=== PATIENT | male | born 1950 | race Caucasian/White ===

== ENCOUNTER → 2018-10-19 | Outpatient (CLI) | payer OTHER ==
[~2018-10-19] MED LIST: ALBU6.7H IH; AMLO5TAB9 PO; ASPI-555 PO; CARV25TA PO; DICL2100G TP; DIPH1TAB24 PO; NITR0.4T50 SL; OMEG1CAP43 PO; POTA25TA13 PO; ROSU40 PO; TICA90TA PO
== END | disposition home or self-care (01) ==
LOC: SHCH 09:40
PROVIDERS: ATTEND Internal Medicine Cardiovascular Disease
DX: I65.23 Occlusion and stenosis of bilateral carotid arteries (principal); I25.10 Atherosclerotic heart disease of native coronary artery without angina pectoris
CPT/HCPCS: 93880

== ENCOUNTER → 2018-12-23 | Outpatient (CLI) | payer OTHER | END | disposition home or self-care (01) | LOC: SHCH 11:51 | PROVIDERS: ATTEND Internal Medicine Cardiovascular Disease | DX: I73.9 Peripheral vascular disease, unspecified (principal) | CPT/HCPCS: 93925 ==

== ENCOUNTER → 2019-02-15 | Outpatient (CLI) | payer OTHER ==
[~2019-02-15] MED LIST changes: -ALBU6.7H IH; +ALBU6.7H9 IH; +IOHEXOL-350 50ML VIAL IV ONE
== END | disposition home or self-care (01) ==
LOC: RAH 10:00
PROVIDERS: ATTEND Internal Medicine Cardiovascular Disease
DX: I70.202 Unspecified atherosclerosis of native arteries of extremities, left leg (principal); K57.90 Diverticulosis of intestine, part unspecified, without perforation or abscess without bleeding; K44.9 Diaphragmatic hernia without obstruction or gangrene; I70.0 Atherosclerosis of aorta; N40.0 Benign prostatic hyperplasia without lower urinary tract symptoms; N32.89 Other specified disorders of bladder
CPT/HCPCS: 75635; Q9967

== ENCOUNTER → 2020-02-03 | Outpatient (CLI) | payer OTHER ==
[~2020-02-03] MED LIST changes: -ASPI-555 PO; +ASPI-556 PO; -IOHEXOL-350 50ML VIAL IV ONE
[2020-02-03 13:34] LABS: CREATININE 1.2 mg/dL (0.5-1.5)
== END | disposition home or self-care (01) ==
LOC: LAB 12:09
PROVIDERS: ATTEND Internal Medicine Cardiovascular Disease
DX: I25.10 Atherosclerotic heart disease of native coronary artery without angina pectoris (principal)
CPT/HCPCS: 36415; 82565; 84520

== ENCOUNTER → 2020-02-06 | Outpatient (CLI) | payer OTHER ==
[~2020-02-06] MED LIST changes: +IOHEXOL-350 50ML VIAL IV ONE
== END | disposition home or self-care (01) ==
LOC: OIH 07:42
PROVIDERS: ATTEND Internal Medicine Cardiovascular Disease
DX: I70.202 Unspecified atherosclerosis of native arteries of extremities, left leg (principal); N28.1 Cyst of kidney, acquired; N20.0 Calculus of kidney; K40.90 Unilateral inguinal hernia, without obstruction or gangrene, not specified as recurrent; M47.819 Spondylosis without myelopathy or radiculopathy, site unspecified; I70.0 Atherosclerosis of aorta; I51.3 Intracardiac thrombosis, not elsewhere classified; C79.2 Secondary malignant neoplasm of skin; I25.10 Atherosclerotic heart disease of native coronary artery without angina pectoris
CPT/HCPCS: 75635; Q9967

== ENCOUNTER → 2021-07-23 | Outpatient (CLI) | payer OTHER ==
[~2021-07-23] VITALS: Ht 172.7 cm; Wt 93.4 kg
[~2021-07-23] MED LIST changes: +AMLO-257 PO; -AMLO5TAB9 PO; -IOHEXOL-350 50ML VIAL IV ONE; +REGADENOSON 0.4 MG/5 ML PF SYG IVP SCH
== END | disposition home or self-care (01) ==
LOC: SHCH 08:28
PROVIDERS: ATTEND Internal Medicine Cardiovascular Disease
DX: I10 Essential (primary) hypertension (principal); R07.89 Other chest pain
CPT/HCPCS: 78452; 93017; 96374; A9500 ×2; J2785

== ENCOUNTER → 2021-11-15 | Outpatient (CLI) | payer OTHER ==
[~2021-11-15] VITALS: Ht 172.7 cm; Wt 90.7 kg
== END | disposition home or self-care (01) ==
LOC: SHCH 08:14
PROVIDERS: ATTEND Internal Medicine Cardiovascular Disease
DX: R06.02 Shortness of breath (principal); R53.83 Other fatigue; I10 Essential (primary) hypertension; Z95.5 Presence of coronary angioplasty implant and graft
CPT/HCPCS: 78452; 93017; 96374; A9500 ×2; J2785

== ENCOUNTER → 2021-12-05 | Outpatient (CLI) | payer OTHER ==
[~2021-12-05] MED LIST changes: -REGADENOSON 0.4 MG/5 ML PF SYG IVP SCH
== END | disposition home or self-care (01) ==
LOC: SHCH 08:13
PROVIDERS: ATTEND Internal Medicine Cardiovascular Disease
DX: I35.8 Other nonrheumatic aortic valve disorders (principal); I11.9 Hypertensive heart disease without heart failure; I25.10 Atherosclerotic heart disease of native coronary artery without angina pectoris; I25.2 Old myocardial infarction; E66.9 Obesity, unspecified; Z98.61 Coronary angioplasty status; Z98.62 Peripheral vascular angioplasty status
CPT/HCPCS: 93306

== ENCOUNTER 2021-12-27 06:45 | Day surgery (SDC) | payer OTHER ==
[2021-12-24 13:21] LABS: BASOPHILS % (AUTO) 0.7 % (0.0-5.0); EOSINOPHILS % (AUTO) 2.6 % (0.0-8.0); HEMATOCRIT 43.7 % (42-54); LYMPHOCYTES % (AUTO) 23.2 % (21.0-51.0); MEAN CORPUSCULAR HEMOGLOBIN 32.5 pg (27.0-33.0); MEAN CORPUSCULAR HGB CONC 34.1 g/dL (32.0-36.0); MEAN CORPUSCULAR VOLUME 95.4 fL (79-99); MONOCYTES % (AUTO) 11.1 % (3.0-13.0); NEUTROPHILS % (AUTO) 62.2 % (40.0-77.0); PLATELET COUNT (AUTO) 146 K/uL (130-400); RED BLOOD CELL COUNT(AUTO) 4.58 MIL/uL (4.50-6.20); RED CELL DISTRIBUTION WIDTH 13.9 % (11.0-15.5); WHITE BLOOD COUNT (AUTO) 6.1 K/uL (4.8-10.8)
[2021-12-24 13:34] LABS: CREATININE 1.1 mg/dL (0.5-1.5); POTASSIUM 3.9 mmol/L (3.5-5.1)
[2021-12-24 13:39] LABS: INR 0.99 (0.85-1.15); PROTHROMBIN TIME 10.8 SEC (9.6-11.6)
[2021-12-24 13:40] LABS: PARTIAL THROMBOPLASTIN TIME 28.5 SEC (26.3-35.5)
[2021-12-24 13:43] LABS: APPEARANCE,URINE CLEAR (CLEAR); BILIRUBIN,URINE SMALL (NEGATIVE); COLOR,URINE YELLOW (YELLOW); GLUCOSE, URINE (UA) NEGATIVE (NEGATIVE); KETONES,URINE NEGATIVE (NEGATIVE); LEUKOCYTE ESTERASE ,URINE NEGATIVE (NEGATIVE); NITRATE,URINE NEGATIVE (NEGATIVE); OCCULT BLOOD,URINE NEGATIVE (NEGATIVE); PH,URINE 5.5 (5.0-8.0); PROTEIN,URINE NEGATIVE (NEGATIVE); UROBILINOGEN,URINE 0.2 mg/dL (0.2-1.0)
[2021-12-24 14:03] LABS: BACTERIA,URINE Rare /HPF (None Seen); RBC,URINE None Seen /HPF (0-1); SQUAMOUS EPITHELIAL CELL,UR 0-2 /HPF (0-2); WBC,URINE None Seen /HPF (0-1)
[2021-12-24 14:05] LABS: B-TYPE NATRIURETIC PEPTIDE 9 pg/mL (0-100)
[2021-12-26 12:39] VITALS: BP 154/79
[2021-12-27] VITALS (10 sets, daily range): BP systolic 103–130; BP diastolic 54–69
[~2021-12-27] VITALS: Ht 172.7 cm; Wt 93.9 kg
[~2021-12-27 06:45] MED LIST changes: -ALBU6.7H9 IH; -AMLO-257 PO; +AMLO-258 PO; +ATOR40TA69 PO; +CARV12.511 PO; -CARV25TA PO; -DICL2100G TP; -DIPH1TAB24 PO; +FISH1CAP27 PO; +ISOS30TA11 PO; -NITR0.4T50 SL; -OMEG1CAP43 PO; +OMEP20TA20 PO; -POTA25TA13 PO; +PREG50CA63 PO; +RANO10003 PO; -ROSU40 PO
[2021-12-27] MEDS ORDERED: 0.9%NACL 1000ML 1,000 ML IV ONE (07:47)
[2021-12-27] MEDS ORDERED: SODIUM BICARB 50MEQ 50ML VIAL 50 ML ONE (09:20)
[2021-12-27] MEDS ORDERED: IOHEXOL-350 50ML VIAL IV ONE (09:20)
[2021-12-27] MEDS ORDERED: LIDOCAINE HCL 400MG/20ML VIAL ONE (09:20)
[2021-12-27] MEDS ORDERED: NITROGLYCERIN 50MG VIAL ONE (09:20)
[2021-12-27] MEDS ORDERED: HEPARIN 10,000 UNIT/10ML (1,000 UNIT/ML) VIAL ONE (09:21)
[2021-12-27] MEDS ORDERED: MEPERIDINE-PF 25 MG/ML SYG ONE ×3 (09:21→10:19)
[2021-12-27] MEDS ORDERED: MIDAZOLAM HCL 1 MG/ML 2ML VIAL ONE ×3 (09:21→10:19)
[2021-12-27] MEDS ORDERED: IOHEXOL 350 MG/ML 100ML INFUS..BTL IV ONE ×2 (09:22→09:56)
[2021-12-27] MEDS ORDERED: 0.9%NACL 1000ML 1,000 ML IV SCH (11:00)
== END 2021-12-27 17:00 | disposition home or self-care (01) ==
LOC: DAH 06:45
PROVIDERS: ATTEND Internal Medicine Cardiovascular Disease
DX: I25.119 Atherosclerotic heart disease of native coronary artery with unspecified angina pectoris (principal); I25.82 Chronic total occlusion of coronary artery; T82.855A Stenosis of coronary artery stent, initial encounter; G47.33 Obstructive sleep apnea (adult) (pediatric); I25.2 Old myocardial infarction; E66.9 Obesity, unspecified; Z79.01 Long term (current) use of anticoagulants; Z98.890 Other specified postprocedural states; Z79.82 Long term (current) use of aspirin; Z79.899 Other long term (current) drug therapy; Z95.5 Presence of coronary angioplasty implant and graft; Z68.31 Body mass index [BMI] 31.0-31.9, adult; Y83.8 Other surgical procedures as the cause of abnormal reaction of the patient, or of later complication, without mention of misadventure at the time of the procedure
CPT/HCPCS: 80048; 83880; 85025; 85610; 85730; 81001; 36415 ×2; 71045; 93005; 93458; 92920; 85347 ×2; C9600; C1769; C1887 ×2; C1894; C1760; C1874; C1725; J3490 ×2; J7030 ×2; J1644 ×2; J2250 ×3; J2175 ×3; Q9967 ×2; A4215; A4222; A4221; A4663; A4216; A4606; Q9965 ×2; A4223 ×3; 96360; 96361; 99156; 99157

== ENCOUNTER → 2022-07-04 | Outpatient (CLI) | payer OTHER ==
[~2022-07-04] MED LIST changes: +REGADENOSON 0.4 MG/5 ML PF SYG IVP SCH
== END | disposition home or self-care (01) ==
LOC: SHCH 08:12
PROVIDERS: ATTEND Internal Medicine Cardiovascular Disease
DX: R07.9 Chest pain, unspecified (principal)
CPT/HCPCS: 78452; 96374; 93017; J2785; A9500 ×2

== ENCOUNTER 2023-01-02 11:13 | Observation (INO) | payer OTHER ==
[~2023-01-02] VITALS: Ht 172.7 cm; Wt 93.9 kg
[~2023-01-02 11:13] MED LIST changes: -REGADENOSON 0.4 MG/5 ML PF SYG IVP SCH
[2023-01-02 12:10] LABS: BASOPHILS # (AUTO) 0.03 K/uL (0.00-0.20); BASOPHILS % (AUTO) 0.5 % (0.0-5.0); EOSINOPHILS # (AUTO) 0.13 K/uL (0.00-0.70); EOSINOPHILS % (AUTO) 2.1 % (0.0-8.0); IMMATURE GRANULOCYTE ABSOLUTE 0.02 K/uL (0-1); LYMPHOCYTES # (AUTO) 1.2 K/uL (1.0-4.8); LYMPHOCYTES % (AUTO) 19.3 % (21.0-51.0); MEAN CORPUSCULAR HEMOGLOBIN 32.4 pg (27.0-33.0); MEAN CORPUSCULAR HGB CONC 34.8 g/dL (32.0-36.0); MEAN CORPUSCULAR VOLUME 93.1 fL (79-99); MONOCYTES # (AUTO) 0.6 K/uL (0.1-1.0); MONOCYTES % (AUTO) 10.6 % (3.0-13.0); NEUTROPHILS # (AUTO) 4.1 K/uL (1.8-7.7); NEUTROPHILS % (AUTO) 67.2 % (40.0-77.0); PLATELET COUNT (AUTO) 128 K/uL (130-400); RED BLOOD CELL COUNT(AUTO) 4.51 MIL/uL (4.50-6.20); RED CELL DISTRIBUTION WIDTH 13.2 % (11.0-15.5); WHITE BLOOD COUNT (AUTO) 6.1 K/uL (4.8-10.8)
[2023-01-02 12:12] LABS: APPEARANCE,URINE CLEAR (CLEAR); BILIRUBIN,URINE NEGATIVE (NEGATIVE); COLOR,URINE YELLOW (YELLOW); GLUCOSE, URINE (UA) NEGATIVE (NEGATIVE); KETONES,URINE NEGATIVE (NEGATIVE); LEUKOCYTE ESTERASE ,URINE NEGATIVE Leu/uL (NEGATIVE); NITRATE,URINE NEGATIVE (NEGATIVE); OCCULT BLOOD,URINE NEGATIVE (NEGATIVE); PH,URINE 6.5 (5.0-8.0); PROTEIN,URINE 10 mg/dL (NEGATIVE); UROBILINOGEN,URINE 0.2 mg/dL (0.2-1.0)
[2023-01-02 12:19] LABS: ADD UA MICROSCOPIC YES
[2023-01-02 12:21] LABS: CREATININE 1.2 mg/dL (0.5-1.5); POTASSIUM 3.9 mmol/L (3.5-5.1)
[2023-01-02 12:22] LABS: INR 0.98 (0.85-1.15); PROTHROMBIN TIME 11.4 SEC (9.6-11.6)
[2023-01-02 12:26] LABS: ALBUMIN 3.4 g/dL (3.5-5.0); BILIRUBIN,TOTAL 1.1 mg/dL (0.2-1.0); TOTAL PROTEIN, SERUM 6.9 g/dL (6.0-8.3)
[2023-01-02 12:39] LABS: B-TYPE NATRIURETIC PEPTIDE 18 pg/mL (0-100)
[2023-01-02 12:47] LABS: MUCUS,URINE RARE LPF (None Seen); RBC,URINE 0-1 /HPF (0-1); WBC,URINE 0-1 /HPF (0-1)
[2023-01-02] MEDS ORDERED: 0.9% NACL 500ML IV.SOLN 500 ML IV ONE (13:30)
[2023-01-02] MEDS ORDERED: ENOXAPARIN SODIUM 100 MG/1 ML SQ ONE (17:00)
[2023-01-02] MEDS ORDERED: RANOLAZINE 500 MG TAB.SR.12H ONE (19:31)
[2023-01-02] MEDS: RANOLAZINE 500 MG TAB.SR.12H PO SCH (19:32)
[2023-01-02] MEDS: ATORVASTATIN 40 MG TABLET PO SCH (19:32)
[2023-01-02] MEDS ORDERED: NON-FORMULARY MEDICATION 1 EACH (Ranolazine (Ranexa) 1,000 MG) PO SCH (21:00)
[2023-01-02] MEDS ORDERED: ONDANSETRON 4MG INJ IV PRN (21:30)
[2023-01-02] MEDS ORDERED: MORPHINE 2 MG SYG IV PRN (21:30)
[2023-01-02] MEDS ORDERED: ACETAMINOPHEN 325 MG TAB PO PRN ×2 (21:30)
[2023-01-02] MEDS ORDERED: POTASSIUM CHLORIDE 20MEQ/100ML 100 ML IV PRN (21:30)
[2023-01-02] MEDS ORDERED: MORPHINE 4 MG SYG IV PRN (21:30)
[2023-01-02] MEDS ORDERED: KCL 20 MEQ ERTAB PO PRN (21:30)
[2023-01-02] MEDS ORDERED: MAGNESIUM 2GM PREMIX 50ML 50 ML IV PRN (21:30)
[2023-01-02] MEDS ORDERED: POTASSIUM CHLORIDE 10% ELIXIR 20 MEQ/15 ML UDCUP PO PRN (21:30)
[2023-01-02 23:00] VITALS: BP 168/74; PULSE 61; RESP 20
[2023-01-03] VITALS (10 sets, daily range): BP systolic 111–144; BP diastolic 49–77; PULSE 56–65; RESP 18–21; O2SAT 94–98
[2023-01-03 04:06] LABS: CREATININE 1.4 mg/dL (0.5-1.5); PHOSPHORUS 1.7 mg/dL (2.5-4.9); POTASSIUM 3.7 mmol/L (3.5-5.1)
[2023-01-03 04:08] LABS: BASOPHILS # (AUTO) 0.03 K/uL (0.00-0.20); BASOPHILS % (AUTO) 0.6 % (0.0-5.0); EOSINOPHILS # (AUTO) 0.15 K/uL (0.00-0.70); EOSINOPHILS % (AUTO) 2.9 % (0.0-8.0); HEMATOCRIT 39.6 % (42-54); LYMPHOCYTES # (AUTO) 1.3 K/uL (1.0-4.8); LYMPHOCYTES % (AUTO) 23.9 % (21.0-51.0); MEAN CORPUSCULAR HEMOGLOBIN 33.2 pg (27.0-33.0); MEAN CORPUSCULAR HGB CONC 35.4 g/dL (32.0-36.0); MEAN CORPUSCULAR VOLUME 93.8 fL (79-99); MONOCYTES # (AUTO) 0.6 K/uL (0.1-1.0); MONOCYTES % (AUTO) 10.9 % (3.0-13.0); NEUTROPHILS # (AUTO) 3.1 K/uL (1.8-7.7); NEUTROPHILS % (AUTO) 59.8 % (40.0-77.0); PLATELET COUNT (AUTO) 130 K/uL (130-400); RED BLOOD CELL COUNT(AUTO) 4.22 MIL/uL (4.50-6.20); RED CELL DISTRIBUTION WIDTH 13.6 % (11.0-15.5); WHITE BLOOD COUNT (AUTO) 5.2 K/uL (4.8-10.8)
[2023-01-03] MEDS: RIVAROXABAN 2.5 MG TABLET PO SCH ×2 (08:12→20:02)
[2023-01-03] MEDS: RANOLAZINE 500 MG TAB.SR.12H PO SCH ×2 (08:12→20:01)
[2023-01-03] MEDS ORDERED: ISOSORBIDE MONO 60MG SR TAB PO SCH (09:00)
[2023-01-03] MEDS ORDERED: ASPIRIN 81 MG EC TAB PO SCH (09:00)
[2023-01-03] MEDS ORDERED: AMLODIPINE 5 MG TAB PO SCH (09:00)
[2023-01-03] MEDS ORDERED: NON-FORMULARY MEDICATION 1 EACH (Amlodipine Besylate 10 MG) PO SCH (09:00)
[2023-01-03] MEDS ORDERED: FAMOTIDINE 20MG TAB PO SCH (09:00)
[2023-01-03] MEDS: ATORVASTATIN 40 MG TABLET PO SCH (20:01)
[2023-01-05 00:35] LABS: PHOSPHORUS 1.9 mg/dL (2.5-4.9); POTASSIUM 3.5 mmol/L (3.5-5.1)
[2023-01-05 19:31] LABS: MEAN CORPUSCULAR VOLUME 94.8 fL (79-99); RED BLOOD CELL COUNT(AUTO) 4.22 MIL/uL (4.50-6.20); WHITE BLOOD COUNT (AUTO) 5.9 K/uL (4.8-10.8)
[2023-01-05 19:32] LABS: BASOPHILS # (AUTO) 0.02 K/uL (0.00-0.20); BASOPHILS % (AUTO) 0.3 % (0.0-5.0); EOSINOPHILS # (AUTO) 0.18 K/uL (0.00-0.70); IMMATURE GRANULOCYTE ABSOLUTE 0.02 K/uL (0-1); LYMPHOCYTES # (AUTO) 1.2 K/uL (1.0-4.8); LYMPHOCYTES % (AUTO) 20.1 % (21.0-51.0); MEAN CORPUSCULAR HEMOGLOBIN 32.7 pg (27.0-33.0); MEAN CORPUSCULAR HGB CONC 34.5 g/dL (32.0-36.0); MONOCYTES # (AUTO) 0.6 K/uL (0.1-1.0); MONOCYTES % (AUTO) 10.2 % (3.0-13.0); NEUTROPHILS # (AUTO) 3.9 K/uL (1.8-7.7); NEUTROPHILS % (AUTO) 66.1 % (40.0-77.0); PLATELET COUNT (AUTO) 120 K/uL (130-400); RED CELL DISTRIBUTION WIDTH 13.6 % (11.0-15.5)
== END 2023-01-04 14:15 | disposition home or self-care (01) ==
LOC: EDH 11:13 → INTOOBSV 20:21 → EDHIP 20:21 → 2AH 23:39
PROVIDERS: ADMIT Internal Medicine; ATTEND Internal Medicine
DX: R07.9 Chest pain, unspecified (principal); I10 Essential (primary) hypertension; I25.10 Atherosclerotic heart disease of native coronary artery without angina pectoris; I73.9 Peripheral vascular disease, unspecified; H53.8 Other visual disturbances; G47.33 Obstructive sleep apnea (adult) (pediatric); M54.17 Radiculopathy, lumbosacral region; Z79.01 Long term (current) use of anticoagulants; Z51.5 Encounter for palliative care; Z79.02 Long term (current) use of antithrombotics/antiplatelets; Z79.82 Long term (current) use of aspirin; Z79.899 Other long term (current) drug therapy; Z95.5 Presence of coronary angioplasty implant and graft
CPT/HCPCS: 96372; 96361; 99285; 84484 ×5; 80053; 83880; 85025 ×3; 85610; 81001; 36415 ×3; 71045; 93005 ×4; 96365; 96366; 83735 ×2; 84100 ×2; 80048 ×2; 70450; G0378 ×42; J1650; J3475

== ENCOUNTER → 2023-02-12 | Outpatient (CLI) | payer OTHER ==
[~2023-02-12] MED LIST changes: +IOHEXOL 350 MG/ML 100ML INFUS..BTL IV ONE; -PREG50CA63 PO; +PREG50CA64 PO
== END | disposition home or self-care (01) ==
LOC: RAH 07:41
PROVIDERS: ATTEND Internal Medicine Cardiovascular Disease
DX: R07.9 Chest pain, unspecified (principal)
CPT/HCPCS: 75574; Q9967

== ENCOUNTER → 2023-08-21 | Outpatient (CLI) | payer OTHER ==
[~2023-08-21] MED LIST changes: -IOHEXOL 350 MG/ML 100ML INFUS..BTL IV ONE
== END | disposition home or self-care (01) ==
LOC: SHCH 08:18
PROVIDERS: ATTEND Internal Medicine Cardiovascular Disease
DX: I11.9 Hypertensive heart disease without heart failure (principal); I25.10 Atherosclerotic heart disease of native coronary artery without angina pectoris
CPT/HCPCS: 93306

== ENCOUNTER → 2023-09-14 | Outpatient (CLI) | payer OTHER ==
[~2023-09-14] MED LIST changes: +IOHEXOL 350 MG/ML 100ML INFUS..BTL IV ONE; +IOHEXOL-350 50ML VIAL IV ONE
== END | disposition home or self-care (01) ==
LOC: RAH 08:27
PROVIDERS: ATTEND Internal Medicine Cardiovascular Disease
DX: I70.203 Unspecified atherosclerosis of native arteries of extremities, bilateral legs (principal); I71.40 Abdominal aortic aneurysm, without rupture, unspecified; M47.815 Spondylosis without myelopathy or radiculopathy, thoracolumbar region; N28.1 Cyst of kidney, acquired; N40.0 Benign prostatic hyperplasia without lower urinary tract symptoms
CPT/HCPCS: 75635; Q9967 ×2

== ENCOUNTER → 2024-05-12 | Outpatient (CLI) | payer OTHER ==
[~2024-05-12] MED LIST changes: -IOHEXOL 350 MG/ML 100ML INFUS..BTL IV ONE; -IOHEXOL-350 50ML VIAL IV ONE
== END | disposition home or self-care (01) ==
LOC: SHCH 15:02
PROVIDERS: ATTEND Internal Medicine Cardiovascular Disease
DX: R09.89 Other specified symptoms and signs involving the circulatory and respiratory systems (principal)
CPT/HCPCS: 93880

== ENCOUNTER → 2024-10-13 | Outpatient (CLI) | payer OTHER ==
[2024-10-13] MEDS: REGADENOSON 0.4 MG/5 ML PF SYG IVP ONE (15:43)
== END | disposition home or self-care (01) ==
LOC: SHCH 08:46
PROVIDERS: ATTEND Internal Medicine Cardiovascular Disease
DX: I11.0 Hypertensive heart disease with heart failure (principal); I50.32 Chronic diastolic (congestive) heart failure; R06.00 Dyspnea, unspecified
CPT/HCPCS: 78452; 93017; J2785; A9500 ×2

== ENCOUNTER 2024-12-23 07:00 | Day surgery (SDC) | payer OTHER ==
[2024-12-21 11:06] VITALS: BP 155/74; PULSE 63; RESP 18; TEMP 97.7
[2024-12-21 11:10] LABS: APPEARANCE,URINE CLEAR (CLEAR); GLUCOSE, URINE (UA) NEGATIVE (NEGATIVE); LEUKOCYTE ESTERASE ,URINE NEGATIVE Leu/uL (NEGATIVE); NITRATE,URINE NEGATIVE (NEGATIVE); OCCULT BLOOD,URINE NEGATIVE (NEGATIVE)
[2024-12-21 11:11] LABS: CREATININE 1.2 mg/dL (0.5-1.3); GLOMERULAR FILTR. RATE CALC 63.0 mL/min (>90); GLUCOSE,RANDOM 96.0 mg/dL (70-105); SODIUM SERUM 142.0 mmol/L (136-145); UREA NITROGEN, BLOOD 15.0 mg/dL (7-18)
[2024-12-21 11:13] LABS: IMMATURE GRANULOCYTE ABSOLUTE 0.04 K/uL (0-1); NUCLEATED RED BLOOD CELLS 0.0 % (0.0-0.19); PLATELET COUNT (AUTO) 170 K/uL (130-400); RED BLOOD CELL COUNT(AUTO) 4.99 MIL/uL (4.50-6.20); RED CELL DISTRIBUTION WIDTH 13.5 % (11.0-15.5); WHITE BLOOD COUNT (AUTO) 9.0 K/uL (4.8-10.8)
--- NOTE | 2024-12-21 11:21 | EKG ---
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
[2024-12-21 11:26] LABS: ADD UA MICROSCOPIC YES
--- NOTE | 2024-12-21 11:54 | HMCIMG ---
EXAM: CR Chest, 1 View. CLINICAL HISTORY: PRE OP COMPARISON: None provided. FINDINGS: LUNGS: There is no mass, infiltrate, or acute pulmonary abnormality. PLEURAL SPACES: No evidence of pleural effusion or pneumothorax. MEDIASTINUM: The cardiomediastinal silhouette is within normal limits. Atherosclerosis of the coronary arteries. BONES: No acute osseous abnormality. IMPRESSION: No acute cardiopulmonary pathology is evident. /[place]
[2024-12-21 12:09] LABS: INR 1.09 (0.85-1.15)
[~2024-12-23] VITALS: Ht 172.7 cm; Wt 87.4 kg
[2024-12-23] VITALS (11 sets, daily range): BP systolic 113–151; BP diastolic 61–83; PULSE 56–63; RESP 14–24; TEMP 97.2–97.7
[~2024-12-23 07:00] MED LIST changes: -CARV12.511 PO; +CARV6.25 PO; +EZET10TA48 PO; -ISOS30TA11 PO; +ISOS30TA92 PO; +MEMA10TA21 PO; +MULT-1335 PO; -OMEP20TA20 PO; +PANT40TA54 PO; -PREG50CA64 PO
[2024-12-23] MEDS ORDERED: LIDOCAINE HCL 400MG/20ML VIAL ONE (09:32)
[2024-12-23] MEDS ORDERED: IOHEXOL 350 MG/ML 100ML INFUS..BTL IV ONE (09:32)
[2024-12-23] MEDS ORDERED: SODIUM BICARB 50MEQ 50ML VIAL 50 ML ONE (09:32)
[2024-12-23] MEDS ORDERED: NITROGLYCERIN 50MG VIAL ONE (09:33)
[2024-12-23] MEDS ORDERED: HEParin-NS 1,000 UNIT/500 ML 1,000 ML IV ONE (09:33)
[2024-12-23] MEDS ORDERED: MIDAZOLAM HCL 1 MG/ML 2ML VIAL ONE ×4 (09:56→11:10)
[2024-12-23] MEDS ORDERED: HEParin-NS 1,000 UNIT/500 ML 500 ML IV ONE (11:40)
[2024-12-23] MEDS ORDERED: 0.9%NACL 1000ML 1,000 ML IV SCH (12:30)
--- NOTE | 2024-12-23 14:28 | PR ---
PROCEDURES: * Left heart catheterization. * Selective right and left coronary arteriogram. * IVUS of the RCA. * IVUS of the circumflex. * IVUS of the LAD. * Drug-coated balloon angioplasty of the circumflex. * Drug-coated balloon angioplasty of the LAD. * Balloon angioplasty and stent placement in the ostial to proximal RCA. * Balloon angioplasty and stent placement in the ostial to proximal circumflex. * Conscious sedation for 90 minutes. INDICATIONS: * History of extensive coronary artery disease. * Status post multiple coronary stent procedures in multiple institutions. * Recurrent angina at low levels of activity. * Abnormal Lexiscan Cardiolite. COMPLICATIONS: None. TOTAL CONTRAST: Approximately 170 mL. APPROACH: Right radial approach. DESCRIPTION OF PROCEDURE: The patient was seen in the cardiac catheterization lab after appropriate operative consents were signed. He was prepped and draped in the usual fashion. After conscious sedation was administered, the right radial artery region was infiltrated with 2% Xylocaine without epinephrine. At this point, the radial sheath was advanced in a retrograde fashion with a modified Seldinger technique. The radial cocktail was administered. A TIG-4 catheter was advanced and crossed into the left ventricular cavity. Left ventricular end-diastolic pressure measurement was obtained. Ventriculography was deferred to conserve contrast. The patient has preserved LV systolic function by noninvasive studies. Pullback revealed no aortic stenosis. The catheter was then engaged in the ostium of the right coronary artery. Catheter dampening ensued immediately. Imaging of the right coronary artery identified a hazy 70-80% in-stent restenosis of the proximal right coronary artery stent. The patient had a stent in the distal right coronary artery jailing the PDA and traversing its ostium and placed distally into the proximal part of the posterior left ventricular branch. The posterior left ventricular branch was a large vessel that was bifurcating and was noted to have a patent chronic stent in the inferior and proximal limb of the bifurcating vessel. The PDA had a stent that was 100% occluded proximal to the stent and 100% occluded distal to the stent. The catheter was withdrawn and engaged in the left main. Imaging was obtained in multiplane. The left main was a normal vessel with no significant stenotic lesions that trifurcated in the LAD, tiny intermediate, and a circumflex. The LAD was a moderately-sized vessel that gave rise to several diagonals of septal perforators. The LAD had a stent in its proximal portion that appeared to have a 70% in-stent restenosis. The first diagonal had a 40% lesion. An intermediate was a tiny vessel that was 100% occluded and was seen to fill via collaterals in a retrograde fashion; however, it was not a sizable vessel. Circumflex was a moderately-sized vessel that gave rise to a tiny OM1 and an ongoing circ with a moderately-sized OM2. The circ had a proximal 80% lesion and there was evidence of a stent in the proximal circumflex extending into the obtuse marginal branch. There was clear evidence of in-stent restenosis. At this point, the catheter was withdrawn and an FR4 6-Hungarian guide was selected and engaged with the ostium of the right coronary artery. Once again, catheter dampening ensued. A 0.014 wire was advanced and positioned to the distal RCA circulation. IVUS measurements were then obtained in the right coronary artery. We obtained a minimal diameter of 2.9 in the area of proximal RCA. The calculated stenotic segment was 73% by IVUS as well. At this point, utilizing IVUS guidance, the right coronary artery was treated with an Eliseo 4.5 x 30 stent, which was inflated to 12 atmospheres and postdilated with an NC balloon at 4.5 x 20 to 20 atmospheres, which still yielded suboptimal results. We then utilized a 5 x 15 NC balloon, which was inflated to 16 atmospheres at 5.5 mm in size with good angiographic results. At this point, the catheter was withdrawn and XB3 was advanced and selectively engaged in the ostium of the left main. A 0.014 was advanced to the distal circumflex. We then proceeded with IVUS measurements of the circumflex, which revealed an 80% in-stent restenosis with an under-dilated stent. The minimal diameter of the circumflex was 2.1 with a percentage calculated stenosis of 88% by IVUS. At this point, we proceeded with placement of a drug-coated AGENT balloon, which is Paclitaxel stent, which was inflated to a nominal pressure for 1 minute. The procedure was then followed by placement of an NC Euphora to 20 atmospheres at 3.13; however, it was still suboptimal results, so we proceeded with an Stebbins 3.0 x 12, which was inflated to 12 atmospheres of the ostial to proximal circ and postdilated with an NC balloon 3 x 20 with good final angiographic results. At this point, the wire was redirected and placed into the LAD. IVUS measurement was performed in the LAD. The minimal diameter in the proximal in-stent segment was 2.4 with a calculated percentage stenosis of 77% by IVUS measurement. At this point, the decision was made to proceed with balloon angioplasty of the LAD. We utilized a 4 x 20 AGENT Paclitaxel drug-eluting balloon to 6 atmospheres. This followed by placement of a 4.0 x 15 NC balloon to 14 atmospheres at 4.07 mm in size with good final angiographic results. At this point, the procedure was completed, the catheter was withdrawn over an indwelling wire. 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 FINAL IMPRESSION: * Severe [place] 3-vessel coronary artery disease. * Recurrent angina. * Abnormal Cardiolite. * Status post multivessel stenting. * Evidence of in-stent restenosis in the RCA, LAD, and proximal circumflex. * Successful IVUS-guided balloon angioplasty and stenting of the RCA with a 4.5 x 30 Stebbins [place] stent postdilated with a 5 x 15 balloon at 16 atmospheres to 5.15 mm size. * Successful balloon angioplasty with a drug-coated balloon of the circumflex with 3 x 20 to 6 atmospheres followed by NC 4 x 20 atmospheres at 3.13 size followed by placement of a 3.0 x 12 Stebbins [place] to 12 atmospheres in the ostium to proximal circ postdilated with an NC balloon at 3 x 20 mm. At this point, the wire was redirected and positioned to the LAD. An AGENT Paclitaxel drug-coated balloon was then utilized and placed in the proximal portion of the LAD in the previously deployed stent and inflated to 6 atmospheres for 1 minute. This was followed by placement of an NC 4.0 x 15 balloon, which was inflated to 14 atmospheres at 4.07 mm size with good final angiographic results. At this point, the procedure was completed, the catheter was withdrawn over an indwelling wire. The patient tolerated it well and left the cardiac dental lab technician in stable condition. FINAL IMPRESSION: * Severe [place] 3-vessel coronary artery disease. * Patent proximal LAD, proximal circ and OM stents with patent proximal RCA, distal RCA and PLVB stents with evidence of occluded PDA with occluded PDA stent and severe in-stent restenosis of the RCA, circumflex and LAD stents. * Successful IVUS-guided balloon angioplasty and stent placement of the proximal RCA. * Successful IVUS-guided balloon angioplasty and drug-coated balloons and stent placement of the ostium to proximal circ. * Successful IVUS-guided balloon angioplasty with a drug-coated balloon and noncompliant balloon in the in-stent restenosis of the LAD with good angiographic results. PLAN: Continue medical management. TID: [id number] [facility]: [id number]
--- NOTE | 2024-12-23 17:30 | NUR ---
d/c pt and spouse given d/c instructions. understanding voiced. pt in no distress and rt radial free from bleeding or hematoma. pt taken out via w/c
== END 2024-12-23 17:30 | disposition home or self-care (01) ==
LOC: DAH 07:00
PROVIDERS: ATTEND Internal Medicine Cardiovascular Disease
DX: I25.118 Atherosclerotic heart disease of native coronary artery with other forms of angina pectoris (principal); T82.855A Stenosis of coronary artery stent, initial encounter; I25.2 Old myocardial infarction; R94.39 Abnormal result of other cardiovascular function study; E66.9 Obesity, unspecified; G47.33 Obstructive sleep apnea (adult) (pediatric); Z95.5 Presence of coronary angioplasty implant and graft; Z79.82 Long term (current) use of aspirin; Z79.899 Other long term (current) drug therapy; Z99.89 Dependence on other enabling machines and devices; Z68.30 Body mass index [BMI] 30.0-30.9, adult; Y71.2 Prosthetic and other implants, materials and accessory cardiovascular devices associated with adverse incidents
CPT/HCPCS: 80048; 83880; 85025; 85610; 85730; 81001; 36415; 71045; 93005; 92978; 92979 ×2; 85347 ×3; 92920; 99156; 99157 ×5; 93458; C9600 ×2; C1769 ×2; C1887 ×3; C1725 ×4; C1874 ×2; A4649; C1894; C1753; J3010; J3490 ×4; J1644 ×4; J2250 ×4; Q9967; A4215; A4222; A4221; A4663; A4216; A4606; Q9965 ×2; A4223 ×3; 96360; 96361; J1265

== ENCOUNTER 2025-01-06 10:59 | Inpatient (IN) | payer OTHER, MEDICARE ==
[2025-01-06] VITALS (11 sets, daily range): BP systolic 130–159; BP diastolic 72–84; PULSE 54–69; RESP 18–20; TEMP 97.5–98; O2SAT 95–98
[~2025-01-06] VITALS: Ht 172.7 cm; Wt 86.4 kg
--- NOTE | 2025-01-06 11:23 | ERN ---
ED Note History of Present Illness Stated Complaint: CHEST DISCOMFROT Chief Complaint: Chest Pain Time Seen by MD: 11:00 Dictation: 74-year-old male with recent heart catheterization and multivessel disease presenting to the emergency department with worsening chest pain over the past few days was at clinic today with unstable angina and sent in for admission and further evaluation and care. Allergies: Coded Allergies: Beta-Blockers (Beta-Adrenergic Bloc (Verified Adverse Reaction, Unknown, 09/06/14) nitroglycerin (Verified Adverse Reaction, Unknown, NTG DRIP, 09/06/14) Home Meds Reported Medications Multivit-Min/Folic/Vit K/Lycop (Men's 50 Plus Multivitamin Tab) 400 Mcg-20 Mcg- 370 Mcg Tablet, 1 EACH PO DAILY, TAB 12/22/24 Isosorbide Mononitrate (Isosorbide Mononitrate ER) 30 Mg Tab.er.24h, 30 MG PO DAILY, TAB 12/22/24 Ezetimibe (Ezetimibe) 10 Mg Tablet, 10 MG PO DAILY, TAB 12/22/24 Pantoprazole Sodium (Pantoprazole Sodium) 40 Mg Tablet.dr, 40 MG PO HS, TAB 12/22/24 Memantine HCl (Memantine HCl) 10 Mg Tablet, 10 MG PO BID, TAB 12/22/24 Amlodipine Besylate (Amlodipine Besylate) 10 Mg Tablet, 10 MG PO DAILY for 30 Days, TAB 0 Refills 12/22/24 Carvedilol (Carvedilol) 6.25 Mg Tablet, 6.25 MG PO BID, TAB 12/22/24 Joffre-3 Fatty Acids/Fish Oil (Joffre 3 1,000 mg Softgel) 300 Mg-1,000 Mg Capsule, 2 EACH PO DAILY, CAP 12/26/21 Ranolazine (Ranexa) 1,000 Mg Tab.er.12h, 1000 MG PO BID, TAB 12/26/21 Atorvastatin Calcium (LIPITOR) 80 Mg Tablet, 80 MG PO DAILY, TAB 12/26/21 Aspirin (Aspir 81) 81 Mg Tablet.dr, 81 MG PO DAILY, TAB 09/07/14 Ticagrelor (Brilinta) 90 Mg Tablet, 90 MG PO Q12H, TAB 09/07/14 Past Medical History Past Medical History: CAD, High Cholesterol, Hypertension, ID Surgical History: Other Surgical History Other: HEART CATH Review of System Dictation Constitutional: Negative for fever,chills, and weight loss Eyes: Negative for injury, pain,redness, and discharge ENT: Negative for injury,pain or swelling Cardiovascular: Per HPI Respiratory: Negative for shortness of breath, cough, and wheezing, Abdomen/GI: Negative for abdominal pain, nausea, vomiting, diarrhea, and constipation Back: Negative for injury and pain : Negative for injury, bleeding and discharge MS/Extremity: Negative for injury and deformity Skin: Negative for rash, and discoloration Neuro: Negative for headache, weakness, numbness, tingling, and seizure Psych: Negative for suicide ideation, homicidal ideation, and hallucinations Initial Vital Sign VS Vital Signs Date Time Temp Pulse Resp B/P (MAP) Pulse Ox O2 Delivery O2 Flow Rate FiO2 01/06/25 11:00 97.7 61 19 143/77 99 Room Air 0 Physical Exam Dictation General: awake, alert, NAD Head/Face: Normocephalic, atraumatic Eyes: PERRL, EOMI, vision at baseline ENT: oral cavity clear, TMs clear, no signs of infection Neck: Trachea midline, supple, no nuchal rigidity Cardiovascular: RRR, normal S1/S2, No MRGs, no JVD Respiratory: CTAB, no respiratory distress, No rales or wheezes Abdomen: Soft, non-tender, non-distended, normal bowel sounds, no guarding or rebound. Skin: Warm, dry, normal turgor, no rash MS/Extremity: Pulses equal, no cyanosis, neurovascular intact, FROM Neuro: COAx4, GCS 15, strength 5/5, CN 2-12 intact, normal cerebellar exam, normal gait, Psych: Normal behavior, mood, and affect normal Results (Laboratory/Radiology) Labs Reviewed?: Yes EKG Comment: EKG normal sinus rhythm heart rate 60 normal intervals no STEMI or STEMI equivalent ED Course ED Course Orders Procedure Category Date Status Time B-Type Natriuretic LAB 01/06/25 Logged Peptide 11:03 12 Lead Ekg Tracing- EKG 01/06/25 Logged Technical 11:03 Basic Metabolic Panel LAB 01/06/25 Logged 11:03 Cbc With Differential LAB 01/06/25 Logged 11:03 Hepatic Function Panel LAB 01/06/25 Logged 11:03 Troponin I High LAB 01/06/25 Logged Sensitivity 11:03 Pt And Ptt LAB 01/06/25 Logged 11:03 Chest 1vw RAD 01/06/25 Logged 11:03 Fentanyl Citrate Pf PHA 01/06/25 Logged 0.05 Mg/Ml (Fentanyl 11:30 Nitroglycerin 0.4mg PHA 01/06/25 Logged Sl Tab (Nitrostat) 11:30 Current Medications Medications (Trade) Dose Ordered Sig/Paul Route PRN Reason Start Time Stop Time Status Last Admin Dose Admin Fentanyl Citrate (FENTanyl CITRate PF 50 MCG/ 1 ML 2ML VIAL) 50 mcg ONCE ONCE IVP 01/06/25 11:30 01/06/25 11:31 UNV Nitroglycerin (Nitrostat) 0.4 mg ONCE PRN SL CHEST PAIN 01/06/25 11:30 02/05/25 11:29 UNV Vital Signs Date Time Temp Pulse Resp B/P (MAP) Pulse Ox O2 Delivery O2 Flow Rate FiO2 01/06/25 11:00 97.7 61 19 143/77 99 Room Air 0 Medical Decision Making MDM MDM: Differential diagnosis: Rationale: Tests considered and ordered secondary to shared decision making include: labs, ECG and radiology Previous outside records reviewed: Old ER visits. Risk of complication and/or morbidity or mortality of patient management: None Medications-Per medication reconciliation Need for hospitalization: Patient does meet criteria for hospitalization. Need for emergency major/minor surgery: No There are no social concerns with this patient. Prescription drug management Prescriptions will include symptomatic care Patient's prior external medical records from other ER visits were reviewed by me as indicated. Prior testing and results from previous visits were reviewed. Prior tests were taken into account with medical decision making and resource utilization, independent historian/historians were used to obtain complete medical history. I independently interpreted the test that were performed, results were reviewed by me and considered findings on radiology if ordered. Medical management and examination interpretation discussions were had by me with other qualified healthcare professionals as indicated for the patient's care. 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 Critical Care Note Comment(s) Total critical care time was 33 minutes. Excluding time for procedures. Management of critically ill patient with concern for acute decompensation. Management included interpretation of laboratory values and imaging, hemodynamics, time for consultation with consultants and admitting physician. DX & DISP Disposition: Inpatient Departure Impression: Primary Impression: Unstable angina Condition: Stable Referrals: RENÉ WELCH (PCP) WINSOME MCKINNEY MD Jan 06, 2025 11:23
[2025-01-06 11:39] LABS: IMMATURE GRANULOCYTE ABSOLUTE 0.05 K/uL (0-1); NUCLEATED RED BLOOD CELLS 0.0 % (0.0-0.19); PLATELET COUNT (AUTO) 147 K/uL (130-400); RED BLOOD CELL COUNT(AUTO) 5.20 MIL/uL (4.50-6.20); RED CELL DISTRIBUTION WIDTH 13.8 % (11.0-15.5); WHITE BLOOD COUNT (AUTO) 7.8 K/uL (4.8-10.8)
[2025-01-06 11:49] LABS: CREATININE 1.0 mg/dL (0.5-1.3); GLOMERULAR FILTR. RATE CALC 79.0 mL/min (>90); GLUCOSE,RANDOM 103.0 mg/dL (70-105); SODIUM SERUM 145.0 mmol/L (136-145); UREA NITROGEN, BLOOD 17.0 mg/dL (7-18)
[2025-01-06 11:52] LABS: INR 1.02 (0.85-1.15)
[2025-01-06 11:55] LABS: ASPARTATE AMINOTRANSFERASE 20.0 U/L (10-37); TOTAL PROTEIN, SERUM 7.7 g/dL (6.0-8.3)
--- NOTE | 2025-01-06 11:56 | HP ---
[facility] HISTORY AND PHYSICAL Date of Service: Jan 06, 2025 Time of Service: 11:56 HISTORY OF PRESENT ILLNESS: Patient is a 74-year-old male with past medical history of hypertension, CAD, multiple stents came to the ED with chief complaint of chest pain. Chest pain pressure in nature started 1 hour ago before reaching the ED. No aggravating or relieving factors. Patient also have associated dizziness. Patient denies fevers, chills, nausea, vomiting, shortness for breath. history of cardiac disease and interventions including 15 stent placements in the past 25-30 years . Patient had a left heart catheterization 1 week ago and had diagnosis of severe [place] three-vessel coronary artery disease and had 3 stents placed in proximal RCA, ostium to proximal circumflex, InStent restenosis of LAD. Patient had echocardiogram done 3 days ago, cardiac stress testing 1 day ago. Patient took his aspirin and home blood pressure medications today Patient vitals temperature 97.7 , pulse 61, respiratory rate 19, blood pressure 143/77 and saturating at 99% on room air Patient's labs shows sodium 145, potassium 3.9, creatinine 1, BUN 17, glucose 103 and troponin is 10. Chest x-ray reports no significant findings Patient is being admitted with a diagnosis of unstable angina. Patient has been scheduled left heart catheterization with Dr. Nichole today REVIEW OF SYSTEMS CONSTITUTIONAL: Denies fevers, chills, or night sweats. No unintentional weight loss reported. NEUROLOGICAL: Admits to mild lightheadedness/dizziness. CARDIOVASCULAR: Denies any exertional angina, dyspnea on exertion, orthopnea, paroxysmal nocturnal dyspnea, palpitations, life-threatening arrhythmias, claudication. PULMONARY: Denies any shortness of breath, cough, phlegm/sputum, hemoptysis, pleuritic chest pain. SLEEP: Denies morning headaches, daytime somnolence or napping. Denies difficulty falling asleep, staying asleep, waking from sleep. Denies knowledge of snoring. GASTROINTESTINAL: Denies any type of dysphagia to either liquids or solids. Denies nausea, vomiting, pyrosis, early satiety, abdominal pain, diarrhea, constipation, or changes in stool consistency or caliber. Denies coffee-ground emesis, hematemesis, hematochezia, or melanotic stools. GENITOURINARY: Denies frequency, urgency, nocturia, hematuria or incontinence (Storage/Irritative symptoms.) Low urinary stream, straining to void, urinary intermittency or hesitancy, splitting of the voiding stream, terminal dribbling. PSYCHIATRIC: Denies any suicidal or homicidal ideation. Denies hallucinations. PAST MEDICAL HISTORY: Hypertension, hyperlipidemia, chronic diastolic heart failure PAST SURGICAL HISTORY: Multiple stents PAST SOCIAL HISTORY: Denies smoking, admits to alcohol socially FAMILY HISTORY: [ ] Coded Allergies: Beta-Blockers (Beta-Adrenergic Bloc (Verified Adverse Reaction, Unknown, 09/06/14) nitroglycerin (Verified Adverse Reaction, Unknown, NTG DRIP, 09/06/14) PHYSICAL EXAM GENERAL APPEARANCE: The patient is awake, alert, and oriented, in no acute car diopulmonary distress. NEUROLOGICAL: Cranial nerves II-XII grossly intact. Motor is 5/5 in bilateral upper and lower extremities proximal to distal. No sensory deficits. HEENT: Face is symmetric. Pupils are equal and reactive. Extraocular movements are intact. NECK: Supple. No JVD. No thyromegaly. No submental, submandibular, pre- /postauricular, occipital or supraclavicular lymphadenopathy. CHEST: Normal chest expansion. No Telemetry. LUNGS: Absence of any rales, rhonchi or any wheezing. CARDIOVASCULAR: Regular. S1 and S2 normal. No appreciable rubs, murmurs or gallops. ABDOMEN: Soft, nontender, and nondistended. There is no rebound, voluntary guarding, or rigidity. : Deferred. No [place]. EXTREMITIES: No clubbing. Good capillary refill. 1+ pedal edema SKIN: No skin breakdown. Vital Sign (Last 24 Hours) 01/06/25 01/06/25 11:00 11:51 Temp 97.7 Pulse 66 Resp 18 B/P (MAP) 145/73 Pulse Ox 97 O2 Delivery Room Air* O2 Flow Rate 0 FiO2 21 LABS: Laboratory: Test 01/06/25 11:16 Range/Units White Blood Count 7.8 4.8-10.8 K/uL Red Blood Count 5.20 4.50-6.20 MIL/uL Hemoglobin 17.0 14.0-18.0 g/dL Hematocrit 48.3 42-54 % Mean Corpuscular Volume 92.9 79-99 fL Mean Corpuscular Hemoglobin 32.7 27.0-33.0 pg Mean Corpuscular Hemoglobin Concent 35.2 32.0-36.0 g/dL Red Cell Distribution Width 13.8 11.0-15.5 % Platelet Count 147 130-400 K/uL Mean Platelet Volume 9.9 7.5-10.5 fL Immature Granulocyte % (Auto) 0.6 0-1 % Neutrophils (%) (Auto) 72.8 40.0-77.0 % Lymphocytes (%) (Auto) 14.5 L 21.0-51.0 % Monocytes (%) (Auto) 10.8 3.0-13.0 % Eosinophils (%) (Auto) 1.0 0.0-8.0 % Basophils (%) (Auto) 0.3 0.0-5.0 % Neutrophils # (Auto) 5.7 1.8-7.7 K/uL Lymphocytes # (Auto) 1.1 1.0-4.8 K/uL Monocytes # (Auto) 0.8 0.1-1.0 K/uL Eosinophils # (Auto) 0.08 0.00-0.70 K/uL Basophils # (Auto) 0.02 0.00-0.20 K/uL Absolute Immature Granulocyte (auto 0.05 0-1 K/uL Nucleated Red Blood Cells 0.0 0.0-0.19 % Prothrombin Time 10.8 9.6-11.6 SEC Prothromb Time International Ratio 1.02 0.85-1.15 Activated Partial Thromboplast Time 26.5 26.3-35.5 SEC Sodium Level 145 136-145 mmol/L Potassium Level 3.9 3.5-5.1 mmol/L Chloride Level 108 101-111 mmol/L Carbon Dioxide Level 29 21-32 mmol/L Blood Urea Nitrogen 17 7-18 mg/dL Creatinine 1.0 0.5-1.3 mg/dL Glomerular Filtration Rate Calc 79 >90 mL/min Random Glucose 103 70-105 mg/dL Total Calcium 9.0 8.5-10.1 mg/dL Current Medications Medications (Trade) Dose Ordered Sig/Paul Route PRN Reason Start Time Stop Time Status Last Admin Dose Admin Acetaminophen (TYLenol 500MG TAB) 500 mg Q6H PRN PO MILD PAIN (1-3) 01/06/25 12:00 02/05/25 11:59 UNV Famotidine (Pepcid 20mg Vial) 20 mg BID IV 01/06/25 21:00 02/05/25 20:59 Hydralazine HCl (APRESOLine 20MG INJ) 10 mg Q6H PRN IV ADMINISTER FOR SBP > 180 01/06/25 12:00 02/05/25 11:59 UNV Magnesium Sulfate 50 ml @ 0 mls/hr PROTOCOL PRN IV mgprotocol 01/06/25 12:00 02/05/25 11:59 UNV Morphine Sulfate (morPHINE 2MG SYG) 2 mg Q4H PRN IVP SEVERE PAIN (7-10) 01/06/25 16:00 01/13/25 15:59 UNV Nitroglycerin (Nitrostat) 0.4 mg ONCE PRN SL CHEST PAIN 01/06/25 11:30 02/05/25 11:29 Potassium Chloride 100 ml @ 50 mls/hr AD PRN IV POTASSIUM PROTOCOL 01/06/25 12:00 02/05/25 11:59 UNV DIAGNOSTICS / RADIOLOGY: PATIENT: ALBERTA ROWE MR#: [id number] : 1950 SEX: M AGE: 74 LOCATION: ED ORDER 110 STATUS: REG REPORT#: [id number] SERVICE 110 REASON: cp ORDERING PHYSICIAN: WINSOME MCKINNEY MD PROCEDURE: CXR1VW - CHEST 1VW CHEST 1VW REASON: cp COMPARISON: Prior study from 12/21/2024 is available. FINDINGS: Single view of the chest was obtained. Lungs are clear. Heart size is normal. There is no pulmonary vascular congestion. Mediastinum and bony thorax appear unremarkable. IMPRESSION: No acute cardiac pulmonary process and unchanged from prior study. DICTATED BY: NEWTON CHOUDHURY MD DATE: 01/06/251213 ELECTRONICALLY SIGNED BY: NEWTON CHOUDHRUY MD DATE: 01/06/251217 ASSESSMENT: Unstable angina Coronary artery disease s/p multiple stent placement Chronic diastolic heart failure Hypertension Hyperlipidemia History of multiple stents placement PLAN: Patient admitted to [facility] Patient kept NPO Unstable angina, chronic diastolic heart failure Patient had recent imaging studies at [facility], we will try to get the reports Cardiology has been consulted on the case Patient took aspirin and home blood pressure medications today Initial troponin is 10 Patient will be started on aspirin [address] Nichole scheduled patient for left heart catheterization today We will plan to resume his heart failure medications after the cath procedure GI prophylaxis with famotidine DVT prophylaxis with SCDs Further course of hospitalization depending on Cardiology recommendations, interventions and clinical response ATTESTATION BY PHYSICIAN I have seen and examined the patient. I reviewed the documentation, medical decision making, and treatment plan as noted by the resident provider above. I agree with the findings and plan of care. I agree with A and P as stated by the resident. Briefly 74 year old male with PMh of CAD s/p multiple stent placement who presented to the hospital secondary to chest pain. Pt was seen in cardiology clinic where he was noted to have midsternal chest pain. pt described the pain as burning in nature. He had recent stent placement around one week ago. troponin was negative so far. pt was evaluated by cardiology with plan for LHC today. Will follow cardiology recommendations. Michael Lim MD, KEERTI K MD Jan 06, 2025 11:56 MICHAEL LIM MD Jan 07, 2025 06:30
[2025-01-06] MEDS ORDERED: MAGNESIUM 2GM PREMIX 50ML 50 ML IV PRN (12:00)
[2025-01-06] MEDS: FAMOTIDINE 20MG VIAL IV ONE (12:05)
[2025-01-06] MEDS: MAG/ALUM/SIMETH 30 ML UDCUP PO ONE (12:06)
--- NOTE | 2025-01-06 12:18 | HMCIMG ---
CHEST 1VW REASON: cp COMPARISON: Prior study from 12/21/2024 is available. FINDINGS: Single view of the chest was obtained. Lungs are clear. Heart size is normal. There is no pulmonary vascular congestion. Mediastinum and bony thorax appear unremarkable. IMPRESSION: No acute cardiac pulmonary process and unchanged from prior study.
[2025-01-06] MEDS: LIDOCAINE HCL 2% VISCOUS 15 ML UDCUP PO ONE (12:32)
[2025-01-06] MEDS: NITROGLYCERIN 0.4 MG SL TAB SL PRN (13:55)
--- NOTE | 2025-01-06 13:55 | NUR ---
NITROGLYCERIN SL ADMINISTERED CHARTED PT C/O BURNING CHEST PAIN.
--- NOTE | 2025-01-06 14:01 | EKG ---
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
--- NOTE | 2025-01-06 14:10 | NUR ---
DCP:HOME Pt currently lives at home with his sps Jesus Manuel Dickson [phone]. Pt does have a CPAP at home that he uses. Pt does not have any home health or provider services. Pt states that he is able to complete ADLs independently. PCP is Tereza Dennis on [facility] and [facility]. At [place] pt will want to go home and family can assist with transportation. Addendum: 01/06/25 at 1412 by SUDHEER MARCELO SS Amended: Links added.
[2025-01-06] MEDS ORDERED: HEParin-NS 1,000 UNIT/500 ML 1,000 ML IV ONE (16:58)
[2025-01-06] MEDS ORDERED: SODIUM BICARB 50MEQ 50ML VIAL 50 ML ONE (16:58)
[2025-01-06] MEDS ORDERED: LIDOCAINE HCL 400MG/20ML VIAL ONE (16:58)
[2025-01-06] MEDS ORDERED: IOHEXOL 350 MG/ML 100ML INFUS..BTL IV ONE ×2 (16:58→20:27)
[2025-01-06] MEDS ORDERED: NITROGLYCERIN 50MG VIAL ONE (16:59)
--- NOTE | 2025-01-06 17:12 | NUR ---
ADVERTISING COLUMNIST BY TO DRAFTER ENGINEERING PT.
[2025-01-06] MEDS ORDERED: MIDAZOLAM HCL 1 MG/ML 2ML VIAL ONE ×2 (17:34→17:39)
--- NOTE | 2025-01-06 18:30 | NUR ---
CT CHEST PE ON HOLD UNTIL FURTHER NOTICE.. 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
[2025-01-06] MEDS: 0.9%NACL 1000ML 1,000 ML IV SCH (18:37)
--- NOTE | 2025-01-06 18:39 | NUR ---
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 PATIENT ALERT AND ORIENTED. DENIES CHEST PAIN AT THIS TIME. PATIENT STATES WILL NOT TAKE MEDICATIONS FROM HOSPITAL IF HE HAS THEM AT HOME. [facility] STATES THAT [facility] TO WHERE THEY DON'T WANT TO PAY FOR MEDICATIONS THAT HE HAS AT HOME. EDUCATED PATIENT THAT HOME MEDS NEED TO BE VERIFIED BY PHARMACIST AND ORDERED BY DOCTOR TO BE OKAY TO TAKE DURING HOSPITAL STAY. PATIENT VERBALIZED UNDERSTANDING. HOWEVER, HE STATES HE WISHES TO TAKE HIS OWN HOME MEDICATIONS.
--- NOTE | 2025-01-06 18:53 | NUR ---
NURSING NOTE DR. GOODE NOTIFIED THAT PATIENT WILL NOT TAKE MEDICATIONS FROM HOSPITAL IF HE HAS THEM A HOME MEDICATION. DR. GOODE STATED TO MAKE SURE AND DOCUMENT IF PATIENT TAKES HIS OWN HOME MEDICATION AND EDUCATE ON SAFETY OF MEDICATION ADMINISTRATION.
--- NOTE | 2025-01-06 20:26 | PR ---
PROCEDURES: * Left heart cath. * Selective diagnostic right and left coronary arteriogram. * Conscious sedation for 30 minutes. INDICATIONS: * Known history of severe coronary artery disease. * Status post multivessel stenting. * Recurrent unstable angina. * Abnormal Lexiscan. COMPLICATIONS: None. TOTAL CONTRAST: 30 mL. APPROACH: Right radial approach. DESCRIPTION OF PROCEDURE: The patient was taken to the cardiac medical lab assistant after appropriate operative consents were signed. He was prepped and draped in the usual fashion. After conscious sedation was administered, the right radial artery region was infiltrated with 2% Xylocaine without epinephrine. A 6-Ukrainian slender radial sheath was advanced in a retrograde fashion by a modified Seldinger technique. At this point, a TIG-4 catheter was advanced over an indwelling wire and placed in the left ventricular cavity. Left ventricular end-diastolic pressure was measured. Ventriculography was deferred. The patient has preserved LV systolic function by noninvasive studies. Pull back revealed no aortic stenosis. The catheter was then engaged in the ostium of the RCA. This was imaged in multiplane. This was a large vessel that gave rise to a high acute marginal PDA, and a branching PLVB. The right coronary artery had a widely patent stent in its proximal portion and a widely patent stent in its distal portion. Distally, the right coronary artery stent traversed the origin of the PDA and was planted in the posterolateral branch. This stent was widely patent. The posterolateral branch had two 2 and was a large vessel. The proximal branch of the posterior left ventricular artery had a patent chronic stent as well. The LAD was 100% occluded chronically and had a stent in its proximal to mid portion that was also chronically occluded. The distal portion of the PDA was seen to have collateralized flow from the LAD. The catheter was then withdrawn and engaged in the ostium of the left main. This was imaged in multiplane. The left main was a moderately sized vessel that was free of disease. It bifurcated on the LAD, and circumflex. Circumflex coronary artery was a moderately sized vessel that had a patent stent in its proximal and ostial segment extending all the way into the obtuse marginal 2, which is a moderately sized vessel. This traversed a tiny obtuse marginal 1. The patient also had an intermediate vessel that was 100% occluded and was a tiny vessel filling retrograde. The LAD was a moderately sized vessel that had a patent stent in its proximal segment. It gave rise to several diagonals and septal perforators. The first diagonal had a 40% lesion. At this point, the procedure was completed. Images were reviewed with other colleagues. Based upon my assessment, I felt that medical management would be the most optimal approach. The patient will be evaluated with a CT angiogram of the chest to assess for possible pulmonary emboli or aortic pathology. The patient is currently stable and compensated and comfortable. The radial band was applied after the catheter was withdrawn over an indwelling wire. FINAL IMPRESSION: * Severe coronary artery disease with patent LAD, circumflex, OM, RCA, PLVB stents. * No aortic stenosis. PLAN: Medical management. TID: [id number] RECEIPT: [id number]
--- NOTE | 2025-01-06 20:46 | EKG ---
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
[2025-01-06] MEDS: RANOLAZINE 500 MG TAB.SR.12H PO SCH (21:00)
[2025-01-06] MEDS: FAMOTIDINE 20MG VIAL IV SCH (21:25)
--- NOTE | 2025-01-06 22:58 | NUR ---
@2150pm Completed removal of TR band, last 2ml of air removed. Upon band removal, no bleeding, no hematoma. radial pulse palpable. Sterile dressing applied.
[2025-01-07] VITALS (10 sets, daily range): BP systolic 117–143; BP diastolic 43–76; PULSE 59–80; RESP 17–20; TEMP 97.8–98.4; O2SAT 94–98
[2025-01-07 03:42] LABS: IMMATURE GRANULOCYTE ABSOLUTE 0.04 K/uL (0-1); NUCLEATED RED BLOOD CELLS 0.0 % (0.0-0.19); PLATELET COUNT (AUTO) 118 K/uL (130-400); RED BLOOD CELL COUNT(AUTO) 4.21 MIL/uL (4.50-6.20); RED CELL DISTRIBUTION WIDTH 13.8 % (11.0-15.5); WHITE BLOOD COUNT (AUTO) 6.3 K/uL (4.8-10.8)
[2025-01-07 03:54] LABS: CREATININE 1.3 mg/dL (0.5-1.3); GLOMERULAR FILTR. RATE CALC 58.0 mL/min (>90); GLUCOSE,RANDOM 111.0 mg/dL (70-105); SODIUM SERUM 147.0 mmol/L (136-145); UREA NITROGEN, BLOOD 13.0 mg/dL (7-18)
--- NOTE | 2025-01-07 06:43 | EKG ---
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
--- NOTE | 2025-01-07 09:27 | HMCIMG ---
CT CHEST PE PROTOCOL WWO CONT CLINICAL HISTORY: chest pain, pe protocal r/o aortic dissection chest pain COMPARISON: None TECHNIQUE: CT angiography of the chest was performed both before and after intravenous contrast administration. The study was performed using angiographic technique with maximum intensity projection reconstruction images. Patient was given 100 ml of Omnipaque through intravenous route. CT was performed with one or more of the following dose reduction techniques: automated exposure control, adjustment of the mA and/or kV according to patient size, or use of iterative reconstruction technique FINDINGS: CT of the chest demonstrate the pulmonary artery demonstrate there is no evidence of any embolism or any filling defect identified. The CT of the thoracic aorta demonstrate atherosclerotic changes there is no aneurysm or dissection identified. There is coronary calcification suggesting of coronary disease. The heart and pericardium appears to be normal. The lungs are clear. There is no evidence of infiltrate. The bony thorax demonstrate no gross of mammography. IMPRESSION: No CT angiographic evidence of pulmonary embolus is seen. No evidence of aneurysm or aortic dissection of thoracic aorta.
[2025-01-07] MEDS: EZETIMIBE 10 MG TAB PO SCH (10:21)
[2025-01-07] MEDS: amLODIPine 5 MG TAB PO SCH (10:21)
[2025-01-07] MEDS: ISOSORBIDE MONO 30MG SR TAB PO SCH (10:21)
[2025-01-07] MEDS: FISH OIL 1000 MG/CAP PO SCH (10:21)
[2025-01-07] MEDS: ASPIRIN 81 MG EC TAB PO SCH (10:21)
[2025-01-07] MEDS: MULTIVITAMIN TABLET PO SCH (10:22)
[2025-01-07] MEDS ORDERED: MAG/ALUM/SIMETH 30 ML UDCUP PO PRN (14:00)
--- NOTE | 2025-01-07 14:59 | PN ---
This is a 74-year-old male with a history of coronary artery disease status post multiple coronary interventions with most recent IVUS guided PCI to the RCA, circumflex and LAD 12/23/2024 secondary to multiple InStent restenosis, history of myocardial infarction x2, hypertension, obstructive sleep apnea and thrombocytopenia. He was admitted from [facility] 01/06/2025 secondary to unstable angina. He underwent left heart catheterization 01/06/2025 which showed severe wiyot coronary artery disease with patent LAD, circumflex, obtuse marginal, RCA and PLVB stents. His most recent echocardiogram 12/27/2024 shows an ejection fraction of 60% with posterior wall thickness moderately increased, no regional wall motion abnormalities, normal-sized left atrium, trivial mitral valve regurgitation and trace tricuspid valve regurgitation. He is currently in sinus rhythm with heart rates in the 60s to 70s. His most recent blood pressure is 123/73. CT of the chest PE protocol was negative for pulmonary embolism, aneurysm or aortic dissection. White blood count 6.3, hemoglobin 13.8, hematocrit 39.9, platelets 118, creatinine 1.3, potassium 3.7, magnesium 2.30, troponin negative x3. He reports heartburn worse with laying, improved with sitting upright. He states in the burning began yesterday. Prior to this he had never experienced heartburn. Otherwise he is asymptomatic. Assessment: 1. Recurrent chest pain. 2. Severe wiyot coronary artery disease with patent LAD, circumflex, obtuse marginal, RCA and PLVB stents by left heart catheterization 01/06/2025. 3. Preserved LVEF. 4. Esophageal reflux. Plan: 1. He underwent left heart catheterization 01/06/2025 due to recurrent chest pain. He had patent stents as noted above. Continue aspirin 81 mg once daily, ticagrelor 90 mg twice daily, atorvastatin 80 mg once daily, carvedilol 6.25 mg twice daily, Zetia 10 mg once daily, isosorbide mononitrate 30 mg once daily, Ranexa 1000 mg twice daily and amlodipine 10 mg once daily. 2. Management of esophageal reflux per the hospital team. 3. He can be discharged home from a cardiology standpoint and follow-up with Dr. Nichole in 1-2 weeks. Vitals/Labs Vital Signs Date Time Temp Pulse Resp B/P (MAP) Pulse Ox O2 Delivery O2 Flow Rate FiO2 01/07/25 11:44 64 20 N/A Room Air 21 01/07/25 11:00 98.1 123/73 95 01/07/25 08:00 0 Laboratory Tests 01/07/25 03:08 RADHA KONG Jan 07, 2025 14:59
[2025-01-07] MEDS: LACTULOSE 20 GM/30 ML UDCUP PO PRN (15:39)
--- NOTE | 2025-01-07 15:43 | PN ---
[facility] PROGRESS NOTE Date of Service: Jan 07, 2025 Time of Service: 15:06 SUBJECTIVE: Patient is a 74-year-old male with past medical history of hypertension, CAD, multiple stents came to the ED with chief complaint of chest pain. Chest pain pressure in nature started 1 hour ago before reaching the ED. No aggravating or relieving factors. Patient also have associated dizziness. Patient denies fevers, chills, nausea, vomiting, shortness for breath. history of cardiac disease and interventions including 15 stent placements in the past 25-30 years . Patient had a left heart catheterization 1 week ago and had diagnosis of severe [place] three-vessel coronary artery disease and had 3 stents placed in proximal RCA, ostium to proximal circumflex, InStent restenosis of LAD. Patient had echocardiogram done 3 days ago, cardiac stress testing 1 day ago. Patient took his aspirin and home blood pressure medications today Patient vitals temperature 97.7 , pulse 61, respiratory rate 19, blood pressure 143/77 and saturating at 99% on room air Patient's labs shows sodium 145, potassium 3.9, creatinine 1, BUN 17, glucose 103 and troponin is 10. Chest x-ray reports no significant findings Patient is being admitted with a diagnosis of unstable angina. Patient has been scheduled left heart catheterization with Dr. Elias today. 01/07/25: Patient was seen at bed side in room 224. Patient is awake, alert oriented. Patient complained of heart burn,started on protonix 40 mg BID. Lithographed Plate Inspector consultation has been placed for the possible EGD.Today his hgb 13.8, Hct 39.9, Rbc 4.21 appears to be low. Left heart catheterization revealed severe coronary artery disease with patent LAD, circumflex, OM, RCA, PLVB stents. Ct angiogram of chest ruled out pulmonary embolism and aortic dissection of the thoracic aorta. Patient is currently hemodynamically stable and we will monitor the patient closely REVIEW OF SYSTEMS CONSTITUTIONAL: Denies fevers, chills, or night sweats. No unintentional weight loss reported. NEUROLOGICAL: Admits to mild lightheadedness/dizziness. CARDIOVASCULAR: Denies any exertional angina, dyspnea on exertion, orthopnea, paroxysmal nocturnal dyspnea, palpitations, life-threatening arrhythmias, claudication. PULMONARY: Denies any shortness of breath, cough, phlegm/sputum, hemoptysis, pleuritic chest pain. SLEEP: Denies morning headaches, daytime somnolence or napping. Denies difficulty falling asleep, staying asleep, waking from sleep. Denies knowledge of snoring. GASTROINTESTINAL: Denies any type of dysphagia to either liquids or solids. Denies nausea, vomiting, pyrosis, early satiety, abdominal pain, diarrhea, constipation, or changes in stool consistency or caliber. Denies coffee-ground emesis, hematemesis, hematochezia, or melanotic stools. GENITOURINARY: Denies frequency, urgency, nocturia, hematuria or incontinence (Storage/Irritative symptoms.) Low urinary stream, straining to void, urinary intermittency or hesitancy, splitting of the voiding stream, terminal dribbling. PSYCHIATRIC: Denies any suicidal or homicidal ideation. Denies hallucinations. PHYSICAL EXAM GENERAL APPEARANCE: The patient is awake, alert, and oriented, in no acute cardiopulmonary distress. NEUROLOGICAL: Cranial nerves II-XII grossly intact. Motor is 5/5 in bilateral upper and lower extremities proximal to distal. No sensory deficits. HEENT: Face is symmetric. Pupils are equal and reactive. Extraocular movements are intact. NECK: Supple. No JVD. No thyromegaly. No submental, submandibular, pre- /postauricular, occipital or supraclavicular lymphadenopathy. CHEST: Normal chest expansion. No Telemetry. LUNGS: Absence of any rales, rhonchi or any wheezing. CARDIOVASCULAR: Regular. S1 and S2 normal. No appreciable rubs, murmurs or gallops. ABDOMEN: Soft, nontender, and nondistended. There is no rebound, voluntary guarding, or rigidity. : Deferred. No Lucero. EXTREMITIES: No clubbing. Good capillary refill. 1+ pedal edema SKIN: No skin breakdown. Vital Signs (last 8hr) Date Time Temp Pulse Resp B/P (MAP) Pulse Ox O2 Delivery O2 Flow Rate FiO2 01/07/25 11:44 64 20 N/A Room Air 21 01/07/25 11:00 98.1 80 18 123/73 95 Room Air 01/07/25 10:22 128/66 01/07/25 08:00 98 Room Air* 0 21 01/07/25 07:37 60 20 N/A Room Air 21 LABS: Laboratory: Test 01/07/25 03:08 01/06/25 22:54 01/06/25 11:16 Range/Units White Blood Count 6.3 4.8-10.8 K/uL Red Blood Count 4.21 L 4.50-6.20 MIL/uL Hemoglobin 13.8 L 14.0-18.0 g/dL Hematocrit 39.9 L 42-54 % Mean Corpuscular Volume 94.8 79-99 fL Mean Corpuscular Hemoglobin 32.8 27.0-33.0 pg Mean Corpuscular Hemoglobin Concent 34.6 32.0-36.0 g/dL Red Cell Distribution Width 13.8 11.0-15.5 % Platelet Count 118 L 130-400 K/uL Mean Platelet Volume 10.2 7.5-10.5 fL Immature Granulocyte % (Auto) 0.6 0-1 % Neutrophils (%) (Auto) 62.8 40.0-77.0 % Lymphocytes (%) (Auto) 22.3 21.0-51.0 % Monocytes (%) (Auto) 12.7 3.0-13.0 % Eosinophils (%) (Auto) 1.1 0.0-8.0 % Basophils (%) (Auto) 0.5 0.0-5.0 % Neutrophils # (Auto) 4.0 1.8-7.7 K/uL Lymphocytes # (Auto) 1.4 1.0-4.8 K/uL Monocytes # (Auto) 0.8 0.1-1.0 K/uL Eosinophils # (Auto) 0.07 0.00-0.70 K/uL Basophils # (Auto) 0.03 0.00-0.20 K/uL Absolute Immature Granulocyte (auto 0.04 0-1 K/uL Nucleated Red Blood Cells 0.0 0.0-0.19 % Sodium Level 147 H 136-145 mmol/L Potassium Level 3.7 3.5-5.1 mmol/L Chloride Level 112 H 101-111 mmol/L Carbon Dioxide Level 30 21-32 mmol/L Blood Urea Nitrogen 13 7-18 mg/dL Creatinine 1.3 0.5-1.3 mg/dL Glomerular Filtration Rate Calc 58 >90 mL/min Random Glucose 111 H 70-105 mg/dL Total Calcium 8.1 L 8.5-10.1 mg/dL Troponin I High Sensitivity 12 4-75 ng/L Prothrombin Time 10.8 9.6-11.6 SEC Prothromb Time International Ratio 1.02 0.85-1.15 Activated Partial Thromboplast Time 26.5 26.3-35.5 SEC Hemoglobin A1c 5.0 4.0-6.0 % Estimated Average Glucose (eAG) 97 70-126 mg/dL Magnesium Level 2.30 1.80-2.40 mg/dL Total Bilirubin 1.0 0.2-1.0 mg/dL Direct Bilirubin 0.2 0.0-0.3 mg/dL Aspartate Amino Transf (AST/SGOT) 20 10-37 U/L Alanine Aminotransferase (ALT/SGPT) 46 12-78 U/L Alkaline Phosphatase 109 50-136 U/L B-Type Natriuretic Peptide 31 0-100 pg/mL Total Protein 7.7 6.0-8.3 g/dL Albumin 3.9 3.5-5.0 g/dL Thyroid Stimulating Hormone (TSH) 1.86 0.36-3.74 uIU/mL Current Medications Medications (Trade) Dose Ordered Sig/Paul Route PRN Reason Start Time Stop Time Status Last Admin Dose Admin Acetaminophen (TYLenol 500MG TAB) 500 mg Q6H PRN PO MILD PAIN (1-3) 01/06/25 12:00 02/05/25 11:59 Al Hydroxide/Mg Hydroxide (MAALox PLUS 30ML) 30 ml Q4H PRN PO HEARTBURN 01/07/25 14:00 02/06/25 13:59 Amlodipine Besylate (NorvASC 5MG TAB) 10 mg DAILY PO 01/07/25 09:00 02/06/25 08:59 01/07/25 10:21 10 MG Aspirin (Aspirin 81mg Ec Tab) 81 mg DAILY PO 01/07/25 09:00 02/06/25 08:59 01/07/25 10:21 81 MG Atorvastatin Calcium (LIPItor 40MG) 80 mg DAILY PO 01/07/25 09:00 02/06/25 08:59 01/07/25 10:21 80 MG Carvedilol (Coreg 6.25MG) 6.25 mg BID PO 01/06/25 21:00 02/05/25 20:59 01/07/25 10:22 6.25 MG EZETIMIBE (Zetia) 10 mg DAILY PO 01/07/25 09:00 02/06/25 08:59 01/07/25 10:21 10 MG Famotidine (Pepcid 20mg Vial) 20 mg BID IV 01/06/25 21:00 01/07/25 13:40 DC 01/07/25 10:21 20 MG Fish Oil (Fish Oil 1000 Mg/Cap) 1,000 mg DAILY PO 01/07/25 09:00 02/06/25 08:59 01/07/25 10:21 1,000 MG Hydralazine HCl (APRESOLine 20MG INJ) 10 mg Q6H PRN IV ADMINISTER FOR SBP > 180 01/06/25 12:00 02/05/25 11:59 Isosorbide Mononitrate (Imdur 30mg Sr) 30 mg DAILY PO 01/07/25 09:00 02/06/25 08:59 01/07/25 10:21 30 MG Lactulose (Constulose 20gm/ 30ml Udcup) 30 gm Q8H PRN PO CONSTIPATION 01/07/25 14:00 02/06/25 13:59 Magnesium Sulfate 50 ml @ 0 mls/hr PROTOCOL PRN IV mgprotocol 01/06/25 12:00 02/05/25 11:59 Memantine (NAmenDA 5 MG TAB) 10 mg BID PO 01/06/25 21:00 02/05/25 20:59 01/07/25 10:22 10 MG Morphine Sulfate (morPHINE 2MG SYG) 2 mg Q4H PRN IVP SEVERE PAIN (7-10) 01/06/25 16:00 01/13/25 15:59 Multivitamins Therapeutic (Multivitamin Tablet) 1 tab DAILY PO 01/07/25 09:00 02/06/25 08:59 01/07/25 10:22 1 TAB Nitroglycerin (Nitrostat) 0.4 mg ONCE PRN SL CHEST PAIN 01/06/25 11:30 02/05/25 11:29 01/06/25 16:02 0.4 MG Pantoprazole Sodium (PROTonix 40MG INJ) 40 mg BID IVP 01/07/25 21:00 02/06/25 20:59 Pantoprazole Sodium (PROTonix 40MG TAB) 40 mg HS PO 01/06/25 21:00 01/07/25 13:38 DC 01/06/25 21:39 40 MG Potassium Chloride 100 ml @ 50 mls/hr AD PRN IV POTASSIUM PROTOCOL 01/06/25 12:00 02/05/25 11:59 01/07/25 05:01 50 MLS/HR Ranolazine (Ranexa) 1,000 mg BID PO 01/06/25 21:00 02/05/25 20:59 01/07/25 10:21 1,000 MG Sodium Chloride 1,000 ml @ 100 mls/hr Q10H IV 01/06/25 18:30 01/07/25 06:00 DC 01/07/25 03:58 100 MLS/HR Ticagrelor (BRILinta) 90 mg Q12H PO 01/06/25 18:30 02/05/25 18:29 DIAGNOSTICS / RADIOLOGY: [address] [address] Ph.: PATIENT NAME: ALBERTA ROWE : 1950, SEX: M ADMIT DISCHARGE DT: ATTENDING: MICHAEL GOODE MD DICTATED: Carrie ELIAS II, MD REPORT: PROCEDURE REPORT PROCEDURES: * Left heart cath. * Selective diagnostic right and left coronary arteriogram. * Conscious sedation for 30 minutes. INDICATIONS: * Known history of severe coronary artery disease. * Status post multivessel stenting. * Recurrent unstable angina. * Abnormal Lexiscan. COMPLICATIONS: None. TOTAL CONTRAST: 30 mL. APPROACH: Right radial approach. DESCRIPTION OF PROCEDURE: The patient was taken to the cardiac bottle labeler after appropriate operative consents were signed. He was prepped and draped in the usual fashion. After conscious sedation was administered, the right radial artery region was infiltrated with 2% Xylocaine without epinephrine. A 6-[place] slender radial sheath was advanced in a retrograde fashion by a modified Seldinger technique. At this point, a TIG-4 catheter was advanced over an indwelling wire and placed in the left ventricular cavity. Left ventricular end-diastolic pressure was measured. Ventriculography was deferred. The patient has preserved LV systolic function by noninvasive studies. Pull back revealed no aortic stenosis. The catheter was then engaged in the ostium of the RCA. This was imaged in multiplane. This was a large vessel that gave rise to a high acute marginal PDA, and a branching PLVB. The right coronary artery had a widely patent stent in its proximal portion and a widely patent stent in its distal portion. Distally, the right coronary artery stent traversed the origin of the PDA and was planted in the posterolateral branch. This stent was widely patent. The posterolateral branch had two 2 and was a large vessel. The proximal branch of the posterior left ventricular artery had a patent chronic stent as well. The LAD was 100% occluded chronically and had a stent in its proximal to mid portion that was also chronically occluded. The distal portion of the PDA was seen to have collateralized flow from the LAD. The catheter was then withdrawn and engaged in the ostium of the left main. This was imaged in multiplane. The left main was a moderately sized vessel that was free of disease. It bifurcated on the LAD, and circumflex. Circumflex coronary artery was a moderately sized vessel that had a patent stent in its proximal and ostial segment extending all the way into the obtuse marginal 2, which is a moderately sized vessel. This traversed a tiny obtuse marginal 1. The patient also had an intermediate vessel that was 100% occluded and was a tiny vessel filling retrograde. The LAD was a moderately sized vessel that had a patent stent in its proximal segment. It gave rise to several diagonals and septal perforators. The first diagonal had a 40% lesion. At this point, the procedure was completed. Images were reviewed with other colleagues. Based upon my assessment, I felt that medical management would be the most optimal approach. The patient will be evaluated with a CT angiogram of the chest to assess for possible pulmonary emboli or aortic pathology. The patient is currently stable and compensated and comfortable. The radial band was applied after the catheter was withdrawn over an indwelling wire. FINAL IMPRESSION: * Severe coronary artery disease with patent LAD, circumflex, OM, RCA, PLVB stents. * No aortic stenosis. PLAN: Medical management. TID: [id number] RECEIPT: [id number] ELECTRONICALLY SIGNED BY: Carrie ELIAS II, MD DATE TIME: 01/07/25 0911 ASSESSMENT: Possible GERD Unstable angina Coronary artery disease s/p multiple stent placement Chronic diastolic heart failure Hypertension Hyperlipidemia History of multiple stents placement PLAN: Patient admitted to [facility] Patient is on heart healthy diet. Possible GERD Gastroenterology has been consulted on the patient for a possible EGD Patient is started on Protonix 40 mg IV b.i.d. Patient is started on Maalox for the burning chest pain Unstable angina, chronic diastolic heart failure Patient restarted on ranolazine, ezetimibe, ticagrelor, carvedilol. Patient continuing on aspirin 81 mg daily Left heart catheterization done with the Cardiology and recommended medical management Cardiology signed off the case and asked to follow up in 1-2 weeks Hyperlipidemia continue atorvastatin and Ezetimibe Continue taking atorvastatin calcium History of multiple stents placement continue dual antiplatelet therapy- aspirin and ticagrelor DVT prophylaxis with SCDs Further course of hospitalization depending on gastroenterology recommendations, interventions and clinical response ATTESTATION BY PHYSICIAN I have seen and examined the patient. I reviewed the documentation, medical decision making, and treatment plan as noted by the mid-level provider above. I agree with the findings and plan of care. reed Sanders MD, HARSHA MD Jan 07, 2025 15:43 STEVE HOBSON MD Jan 07, 2025 16:20
[2025-01-07 19:22] LABS: APPEARANCE,URINE CLEAR (CLEAR); GLUCOSE, URINE (UA) NEGATIVE (NEGATIVE); LEUKOCYTE ESTERASE ,URINE NEGATIVE Leu/uL (NEGATIVE); NITRATE,URINE NEGATIVE (NEGATIVE); OCCULT BLOOD,URINE NEGATIVE (NEGATIVE)
[2025-01-07 19:24] LABS: ADD UA MICROSCOPIC NO
--- NOTE | 2025-01-07 22:52 | NUR ---
Spoke to Concepcion Jeffers regarding patients admission to [facility]. Granddaughter states that Patient Interventional Pain Physician yanked off pants and underwear and threw the clothes on the ground. She states that she found the clothes thrown in the closet and not in the bag, and that the patients glasses were next to her shoes. She also didn't like how the RUBBER MIXER placed the jacket on the patient. As per granddaughter the jacket was nursing home on nursing home off. She stated that she feels the patient was not treated properly. Granddaughter was educated on how the gown is worn so the leads can be applied so that the patient can be telemonitored as ordered, and SCDs applied as ordered. Also the patient can utilize a bed meier due to chest pain on exertion. Granddaughter was not present when patient was being settled in to room. Addendum: 01/07/25 at 2307 by DEA CHUN RN RN I was present, Mary FUENTES was present, and Casimiro MONIQUE nurse was present when patient was settled into room 229.
[2025-01-08 00:22] VITALS: BP 132/70; PULSE 59; RESP 18; TEMP 98.8
[2025-01-08 03:47] VITALS: BP 136/71; PULSE 55; RESP 18; TEMP 98.8
[2025-01-08 04:31] LABS: IMMATURE GRANULOCYTE ABSOLUTE 0.03 K/uL (0-1); NUCLEATED RED BLOOD CELLS 0.0 % (0.0-0.19); PLATELET COUNT (AUTO) 110 K/uL (130-400); RED BLOOD CELL COUNT(AUTO) 4.17 MIL/uL (4.50-6.20); RED CELL DISTRIBUTION WIDTH 13.6 % (11.0-15.5); WHITE BLOOD COUNT (AUTO) 6.8 K/uL (4.8-10.8)
[2025-01-08 04:43] LABS: CREATININE 1.0 mg/dL (0.5-1.3); GLOMERULAR FILTR. RATE CALC 79.0 mL/min (>90); GLUCOSE,RANDOM 89.0 mg/dL (70-105); SODIUM SERUM 145.0 mmol/L (136-145); UREA NITROGEN, BLOOD 12.0 mg/dL (7-18)
[2025-01-08 07:19] VITALS: PULSE 59; RESP 18; O2SAT 96
[2025-01-08 07:31] VITALS: BP 135/65; PULSE 55; RESP 20; TEMP 98.7
[2025-01-08 08:00] VITALS: O2SAT 98
[2025-01-08 12:00] VITALS: BP 141/82; PULSE 85; RESP 20; TEMP 98.6
[2025-01-08] MEDS ORDERED: MAAL30 PO (13:12)
--- NOTE | 2025-01-08 13:36 | DS ---
Discharge Summary Hospital Course Summary: Patient is a 74-year-old male with past medical history of hypertension, CAD, multiple stents came to the ED with chief complaint of chest pain. Chest pain pressure in nature started 1 hour ago before reaching the ED. No aggravating or relieving factors. Patient also have associated dizziness. Patient denies fevers, chills, nausea, vomiting, shortness for breath. history of cardiac disease and interventions including 15 stent placements in the past 25-30 years . Patient had a left heart catheterization 1 week ago and had diagnosis of severe [place] three-vessel coronary artery disease and had 3 stents placed in proximal RCA, ostium to proximal circumflex, InStent restenosis of LAD. Patient had echocardiogram done 3 days ago, cardiac stress testing 1 day ago. Patient took his aspirin and home blood pressure medications today Patient vitals temperature 97.7 , pulse 61, respiratory rate 19, blood pressure 143/77 and saturating at 99% on room air Patient's labs shows sodium 145, potassium 3.9, creatinine 1, BUN 17, glucose 103 and troponin is 10. Chest x-ray reports no significant findings Patient is being admitted for further evaluation and management. On the floor, He underwent left heart catheterization on 01/06/2025 due to recurrent chest pain which revealed severe coronary artery disease with patent LAD, circumflex, OM, RCA, PLVB stents. No aortic stenosis. He was continued on aspirin 81 mg once daily, ticagrelor 90 mg twice daily, atorvastatin 80 mg once daily, carvedilol 6.25 mg twice daily, Zetia 10 mg once daily, isosorbide mononitrate 30 mg once daily, Ranexa 1000 mg twice daily and amlodipine 10 mg once daily. She was also started on pantoprazole 40 mg b.i.d. and Maalox 30 mL q.4 PRN. Private Household Worker was consulted for the chest pain concerning secondary to GERD but the symptoms got better with pantoprazole and Maalox. Patient deferred the inpatient GI consult as the symptoms attributable to GERD resolved and he preferred for outpatient follow up to his own GI doctor. He is hemodynamically stable to be discharged today. He needs cardiology(Dr. Elias) follow up within 1 week for further evaluation and management. He also needs PCP follow up within 1 week. Tablet Repair(s): -Cardiology consultation for chest pain with past medical history of severe coronary artery disease status post multiple coronary artery stenting. -GI consult-patient deferred Procedure(s): PATIENT NAME: ALBERTA ROWE : 1950, SEX: M ADMIT DISCHARGE DT: ATTENDING: MICHAEL GOODE MD DICTATED: Carrie ELIAS II, MD REPORT: PROCEDURE REPORT PROCEDURES: * Left heart cath. * Selective diagnostic right and left coronary arteriogram. * Conscious sedation for 30 minutes. INDICATIONS: * Known history of severe coronary artery disease. * Status post multivessel stenting. * Recurrent unstable angina. * Abnormal Lexiscan. COMPLICATIONS: None. TOTAL CONTRAST: 30 mL. APPROACH: Right radial approach. DESCRIPTION OF PROCEDURE: The patient was taken to the cardiac geochemical laboratory technician after appropriate operative consents were signed. He was prepped and draped in the usual fashion. After conscious sedation was administered, the right radial artery region was infiltrated with 2% Xylocaine without epinephrine. A 6-Turkmen slender radial sheath was advanced in a retrograde fashion by a modified Seldinger technique. At this point, a TIG-4 catheter was advanced over an indwelling wire and placed in the left ventricular cavity. Left ventricular end-diastolic pressure was measured. Ventriculography was deferred. The patient has preserved LV systolic function by noninvasive studies. Pull back revealed no aortic stenosis. The catheter was then engaged in the ostium of the RCA. This was imaged in multiplane. This was a large vessel that gave rise to a high acute marginal PDA, and a branching PLVB. The right coronary artery had a widely patent stent in its proximal portion and a widely patent stent in its distal portion. Distally, the right coronary artery stent traversed the origin of the PDA and was planted in the posterolateral branch. This stent was widely patent. The posterolateral branch had two 2 and was a large vessel. The proximal branch of the posterior left ventricular artery had a patent chronic stent as well. The LAD was 100% occluded chronically and had a stent in its proximal to mid portion that was also chronically occluded. The distal portion of the PDA was seen to have collateralized flow from the LAD. The catheter was then withdrawn and engaged in the ostium of the left main. This was imaged in multiplane. The left main was a moderately sized vessel that was free of disease. It bifurcated on the LAD, and circumflex. Circumflex coronary artery was a moderately sized vessel that had a patent stent in its proximal and ostial segment extending all the way into the obtuse marginal 2, which is a moderately sized vessel. This traversed a tiny obtuse marginal 1. The patient also had an intermediate vessel that was 100% occluded and was a tiny vessel filling retrograde. The LAD was a moderately sized vessel that had a patent stent in its proximal segment. It gave rise to several diagonals and septal perforators. The first diagonal had a 40% lesion. At this point, the procedure was completed. Images were reviewed with other colleagues. Based upon my assessment, I felt that medical management would be the most optimal approach. The patient will be evaluated with a CT angiogram of the chest to assess for possible pulmonary emboli or aortic pathology. The patient is currently stable and compensated and comfortable. The radial band was applied after the catheter was withdrawn over an indwelling wire. FINAL IMPRESSION: * Severe coronary artery disease with patent LAD, circumflex, OM, RCA, PLVB stents. * No aortic stenosis. PLAN: Medical management. TID: [id number] RECEIPT: [id number] ELECTRONICALLY SIGNED BY: Carrie ELIAS II, MD DATE TIME: 01/07/25910 PATIENT: ALBERTA ROWE MR#: [id number] : 1950 SEX: M AGE: 74 LOCATION: [facility] ORDER 14 STATUS: ADM IN REPORT#: [id number] SERVICE 06 REASON: chest pain, pe protocal r/o aortic dissection ORDERING PHYSICIAN: Carrie ELIAS II, MD PROCEDURE: CHES PE - CT CHEST PE PROTOCOL WWO CONT CT CHEST PE PROTOCOL WWO CONT CLINICAL HISTORY: chest pain, pe protocal r/o aortic dissection chest pain COMPARISON: None TECHNIQUE: CT angiography of the chest was performed both before and after intravenous contrast administration. The study was performed using angiographic technique with maximum intensity projection reconstruction images. Patient was given 100 ml of Omnipaque through intravenous route. CT was performed with one or more of the following dose reduction techniques: automated exposure control, adjustment of the mA and/or kV according to patient size, or use of iterative reconstruction technique FINDINGS: CT of the chest demonstrate the pulmonary artery demonstrate there is no evidence of any embolism or any filling defect identified. The CT of the thoracic aorta demonstrate atherosclerotic changes there is no aneurysm or dissection identified. There is coronary calcification suggesting of coronary disease. The heart and pericardium appears to be normal. The lungs are clear. There is no evidence of infiltrate. The bony thorax demonstrate no gross of mammography. IMPRESSION: No CT angiographic evidence of pulmonary embolus is seen. No evidence of aneurysm or aortic dissection of thoracic aorta. DICTATED BY: NEWTON CHOUDHURY MD DATE: 01/07/25920 ELECTRONICALLY SIGNED BY: NEWTON CHOUDHURY MD DATE: 01/07/25926 Assessment/Plan: ASSESSMENT: Chest pain secondary to severe coronary artery disease s/p multiple stent placement Chronic angina Chronic diastolic heart failure Gastroesophageal reflux disease Hypertension Hyperlipidemia Acute kidney injury Hypernatremia Acute Drop in hemoglobin Discharge Instructions: -You were admitted at [facility] for evaluation and management of chest pain. -You are started on Maalox as needed for epigastric discomfort for 10 days. please take as instructed -Please continue your home medications as instructed. -You have to follow up to cardiology(Dr. Elias) within a week. -Please follow up to PCP within a week. Home Medications: Reported Medications Multivit-Min/Folic/Vit K/Lycop (Men's 50 Plus Multivitamin Tab) 400 Mcg-20 Mcg- 370 Mcg Tablet, 1 EACH PO DAILY, TAB 12/22/24 Isosorbide Mononitrate (Isosorbide Mononitrate ER) 30 Mg Tab.er.24h, 30 MG PO DAILY, TAB 12/22/24 Ezetimibe (Ezetimibe) 10 Mg Tablet, 10 MG PO DAILY, TAB 12/22/24 Pantoprazole Sodium (Pantoprazole Sodium) 40 Mg Tablet.dr, 40 MG PO HS, TAB 12/22/24 Memantine HCl (Memantine HCl) 10 Mg Tablet, 10 MG PO BID, TAB 12/22/24 Amlodipine Besylate (Amlodipine Besylate) 10 Mg Tablet, 10 MG PO DAILY for 30 Days, TAB 0 Refills 12/22/24 Carvedilol (Carvedilol) 6.25 Mg Tablet, 6.25 MG PO BID, TAB 12/22/24 Campbell-3 Fatty Acids/Fish Oil (Campbell 3 1,000 mg Softgel) 300 Mg-1,000 Mg Capsule, 2 EACH PO DAILY, CAP 12/26/21 Ranolazine (Ranexa) 1,000 Mg Tab.er.12h, 1000 MG PO BID, TAB 12/26/21 Atorvastatin Calcium (LIPITOR) 80 Mg Tablet, 80 MG PO DAILY, TAB 12/26/21 Aspirin (Aspir 81) 81 Mg Tablet.dr, 81 MG PO DAILY, TAB 09/07/14 Ticagrelor (Brilinta) 90 Mg Tablet, 90 MG PO Q12H, TAB 09/07/14 New Medications: Mag Hydrox/Al Hydrox/Simeth (Maalox/Mylanta Susp) 200 Mg-200 Mg-20 Mg/5 Ml Susp 15 ML PO TID PRN for HEARTBURN for 7 Days, #355 ML 0 Refills Continued Medications: Amlodipine Besylate (Amlodipine Besylate) 10 Mg Tablet 10 MG PO DAILY for 30 Days, TAB 0 Refills Aspirin (Aspir 81) 81 Mg Tablet.dr 81 MG PO DAILY, TAB Atorvastatin Calcium (Lipitor) 80 Mg Tablet 80 MG PO DAILY, TAB Carvedilol (Carvedilol) 6.25 Mg Tablet 6.25 MG PO BID, TAB Ezetimibe (Ezetimibe) 10 Mg Tablet 10 MG PO DAILY, TAB Isosorbide Mononitrate (Isosorbide Mononitrate ER) 30 Mg Tab.er.24h 30 MG PO DAILY, TAB Memantine HCl (Memantine HCl) 10 Mg Tablet 10 MG PO BID, TAB Multivit-Min/Folic/Vit K/Lycop (Men's 50 Plus Multivitamin Tab) 400 Mcg-20 Mcg- 370 Mcg Tablet 1 EACH PO DAILY, TAB Campbell-3 Fatty Acids/Fish Oil (Campbell 3 1,000 mg Softgel) 300 Mg-1,000 Mg Capsule 2 EACH PO DAILY, CAP Pantoprazole Sodium (Pantoprazole Sodium) 40 Mg Tablet.dr 40 MG PO HS, TAB Ranolazine (Ranexa) 1,000 Mg Tab.er.12h 1000 MG PO BID, TAB Ticagrelor (Brilinta) 90 Mg Tablet 90 MG PO Q12H, TAB Time spent arranging discharge: 1-30 minutes ATTESTATION BY PHYSICIAN I have seen and examined the patient. I reviewed the documentation, medical decision making, and treatment plan as noted by the resident provider above. I agree with the findings and plan of care. Messi Sanders MD, SUNIL MD Jan 08, 2025 13:36
== END 2025-01-08 15:00 | disposition home or self-care (01) | DRG 287 ==
LOC: EDH 10:59 → EDHIP 11:49 → 2DH 18:35
PROVIDERS: ADMIT Internal Medicine; ATTEND Internal Medicine
PROC: 4A023N7 Measurement of Cardiac Sampling and Pressure, Left Heart, Percutaneous Approach (ICD-10-PCS; principal; 2025-01-07)
PROC: B2111ZZ Fluoroscopy of Multiple Coronary Arteries using Low Osmolar Contrast (ICD-10-PCS; 2025-01-07)
DX: I25.110 Atherosclerotic heart disease of native coronary artery with unstable angina pectoris (principal); E87.0 Hyperosmolality and hypernatremia; I50.32 Chronic diastolic (congestive) heart failure; N17.9 Acute kidney failure, unspecified; R71.0 Precipitous drop in hematocrit; E78.5 Hyperlipidemia, unspecified; E78.00 Pure hypercholesterolemia, unspecified; I11.0 Hypertensive heart disease with heart failure; K21.9 Gastro-esophageal reflux disease without esophagitis; Z79.82 Long term (current) use of aspirin; Z79.899 Other long term (current) drug therapy; I25.2 Old myocardial infarction; Z88.8 Allergy status to other drugs, medicaments and biological substances
CPT/HCPCS: 36415; 71045; 71270; 80048; 80076; 81003; 83036; 83735; 83880; 84443; 84484; 85025; 85610; 85730; 93005; 93458; 96374; 96375; 99156; 99157; 99291; C1769; G0378; J1644; J2250; J2270; J2470; J3010; J3480; J3490; Q9967; C1894; Q9965